=== PATIENT | female | born 1945 | race Caucasian/White ===

== ENCOUNTER 2017-07-22 15:44 | Inpatient (IN) | payer BC, MEDICARE ==
[2017-07-22 19:06] LABS: Troponin I 0.195 ng/mL (< 0.028)
[2017-07-22] MEDS ORDERED: traMADol HCl 50 MG TAB PO PRN (20:40)
[2017-07-22] MEDS ORDERED: cloNIDine 0.1 MG TAB PO PRN (20:40)
[2017-07-22] MEDS ORDERED: Acetaminophen 325 MG TAB PO PRN (20:40)
[2017-07-22] MEDS ORDERED: Ondansetron ODT 8 MG TAB SL PRN (20:42)
[2017-07-22] MEDS ORDERED: Promethazine HCl 25 MG/ML VIAL IM/IV PRN (20:42)
[2017-07-22] MEDS ORDERED: Benzonatate 100 MG CAP PO PRN (20:43)
[2017-07-22] MEDS ORDERED: Nitroglycerin 0.4 MG TAB (25 Tab Bottle) SL PRN (20:45)
[2017-07-22] MEDS ORDERED: Morphine 4 MG/ML VIAL SLOW IVP PRN (20:45)
[2017-07-22] MEDS ORDERED: Dextrose 5% in Water 1,000 ML IV PRN (20:49)
[2017-07-22] MEDS ORDERED: Dextrose 50% Abboject 50 ML SYRINGE SLOW IVP PRN (20:49)
[2017-07-22 22:13] LABS: Troponin I 0.165 ng/mL (< 0.028)
[2017-07-22] MEDS: cefTRIAXone\\ROCEPHIN 2 GM in Sodium Chloride 0.9% 100 ML IVPB SCH (22:13)
[2017-07-22] MEDS: Atorvastatin Calcium 40 MG TAB PO SCH (22:14)
[2017-07-22] MEDS: Insulin Detemir 100 UNITS/ML 40 UNITS in Pre-Filled Syringe SC SCH (22:14)
[2017-07-22] MEDS: Gabapentin 300 MG CAP PO SCH (22:14)
[2017-07-22] MEDS: guaiFENesin ER 600 MG TAB PO SCH (22:14)
[2017-07-22 22:56] VITALS: BMI 25.4
--- NOTE | 2017-07-23 00:34 | HP ---
DATE OF ADMISSION: 07/22/2017 CHIEF COMPLAINT: Posttussive emesis. HISTORY OF PRESENT ILLNESS: The patient states that approximately 3 months ago, she had a bout of br onchitis with interval resolution. She has a longstanding tobacco history of [id number]. No prior diagnosis of chronic obstructive pulmonary disease. She has a longstanding heart history with prior CABG. No chest pain or shortness breath; however, she has had sputum production over the last 1-2 weeks here with no fevers with worsening cough to the point of posttussive emesis over the last c ouple of days, worsening fatigue, body aches presented to the emergency department for evaluation and is having loose airy stools with difficulty keeping down food with appetite, decreased swell. Wilson centeno is found to have elevated troponin in the setting of chronic kidney disease in the [facility] and transferred to [facility] for further evaluation and cardiac workup. Patient is somewhat improved following a liter of bolus in transit and antiemetic medication. REVIEW OF SYSTEMS: No fevers, no chills. Positive body aches, positive decreased appetite, positive cough, positive sputum production, positive postnasal drip, positive congestion, positive nausea and vomiting, positive diarrhea. No dysuria, no chest pain, no shortness of breath. No lower extremity edema. No confusion. No syncopal episode. PAST MEDICAL AND SURGICAL HISTORY: Includes coronary artery disease, CABG, stent to left lower extre mity, CVA versus TIA, type 2 diabetes, hyperlipidemia, hypertension. Patient has had tubal ligation, CABG, stents as above in leg, lumbar spine surgery x2, left ovarian cyst. SOCIAL HISTORY: The patient is no longer smoking, no alcohol use. Lives alone. Daughter has social support in that area. HOME MEDICATIONS: Include Lasix 40 mg, aspirin 325, atorvastatin 40 mg, gabapentin 300 mg t.i.d., Le vemir 40 units at bedtime, tramadol 50 mg 1 tab p.o. daily p.r.n. for pain, metoprolol succinate 25 m g, Klor-Con 20 mEq 1 tab p.o. daily, Plavix 75 mg, clonidine 0.1 mg p.r.n. for blood pressure, amlodi pine 5 mg. PHYSICAL EXAMINATION: VITAL SIGNS: Blood pressure on arrival to emergency department of 130/66, pulse of 83, respiratory r ate of 19, temperature of 98.4, oxygen saturation 97% on room air. GENERAL: The patient is alert, oriented, in no acute distress. HEENT: Normocephalic, atraumatic. Extraocular movements are intact. Sclerae are clear. Oral mucos a is moist. HEART: Regular rate and rhythm. No murmurs auscultated. LUNGS: With some mucus plugging, cleared with posttussive effort to left lower base, otherwise clear . No rhonchi or rales. ABDOMEN: Soft, nontender. Positive bowel sounds throughout. EXTREMITIES: Lower extremities without cyanosis or edema. NEUROLOGIC: The patient is alert and oriented x3. No focal deficits. Speech is normal. LABORATORY AND DIAGNOSTIC DATA: White blood cell count of 3.3, platelet count of 116, hemoglobin of 13.9, neutrophils of 77.3. Sodium of 140, potassium of 4.1, CO2 of 25, creatinine of 2.08, glucose o f 145, AST of 20, ALT of 11. Troponin I 0.225, troponin II 0.195, albumin of 3.4, lipase of 61. Desi st x-ray without acute cardiopulmonary events. EKG with ST segment depression, otherwise normal sinu s rhythm. ASSESSMENT AND PLAN: Recurrent bronchitis, suspicious for early onset chronic obstructive pulmonary disease. Recommend spirometry, PFTs as an outpatient basis for more formal diagnosis in the interim, we will treat the patient like a chronic obstructive pulmonary disease exacerbation, likely causing some heart strain and elevated troponins in the setting of chronic kidney disease, stage 4. Start taya quevedo on Solu-Medrol transitioning to oral prednisone. Start patient on Rocephin and breathing treat ments q.8 hours, DuoNeb, incentive spirometry, Dulera in the a.m. twice daily. We will follow the taya quevedo's sputum production as patient's oxygen saturations are stable and no gross wheezing on exam at this point in time, clear x-ray on chest. Follow up trended troponin. Consulting Cardiology, given the patient's significant cardiac history to follow up to further cardiac management. Patient recei rayo 1 therapeutic dose of Lovenox. We will continue patient's home medications otherwise and maintai n on prophylactic Lovenox, continue further if any chest pain or shortness of breath occurs. We will escalate to acute coronary syndrome. Differential diagnosis of NSTEMI, given ST depression currentl y. Diabetes type 2. Continue patient's home insulin on sliding scale, Accu-Cheks and sliding scale insulin. We will follow the patient's I's and O's for any further saline bolus, the patient has rece ived 1 liter. No signs of volume overload at this point. Holding patient's Lasix and will follow cl inically.
[2017-07-23 05:39] LABS: Anion Gap 13 mmol/L (10-20); BUN (Urea Nitrogen) 36 mg/dL (9.8-20.1); Calc. Creatinine Clearance 32 mL/min (70-130); Calcium 9.2 mg/dL (7.8-10.44); Carbon Dioxide 27 mmol/L (23-31); Chloride 104 mmol/L (98-107); Estimated GFR-MDRD 27; Glucose 100 mg/dL (80-115); Potassium 3.6 mmol/L (3.5-5.1); Sodium 140 mmol/L (136-145)
[2017-07-23 06:07] LABS: Band 29 % (5-11); Eosinophils 2 % (0-10); Hemoglobin 12.2 g/dL (12.0-16.0); Lymphocytes 31 % (21-51); MDiff Complete? YES; Mean Corpuscular HGB CONC 32.3 g/dL (32.0-36.0); Mean Corpuscular Hemoglobin 28.9 pg (27.0-31.0); Mean Corpuscular Volume 89.5 fl (81.0-99.0); Mean Platelet Volume 10.7 fL (7.4-10.4); Monocytes 6 % (0-10); Neutrophil 31 % (42-75); PLT Morphology Comment Appears Decreased; Platelet Count 91 thou/uL (130-400); Red Blood Cell (RBC) Count 4.23 mill/uL (4.20-5.40); White Blood Cell (WBC) Count 2.5 thou/uL (4.8-10.8)
[2017-07-23] MEDS: Gabapentin 300 MG CAP PO SCH ×3 (08:56→22:40)
[2017-07-23] MEDS: Lisinopril 20 MG TAB PO SCH (08:56)
[2017-07-23] MEDS: Clopidogrel Bisulfate 75 MG TAB PO SCH (08:56)
[2017-07-23] MEDS: Aspirin 325 MG TAB PO SCH (08:56)
[2017-07-23] MEDS: guaiFENesin ER 600 MG TAB PO SCH ×2 (08:57→22:40)
[2017-07-23] MEDS: Enoxaparin Sodium 30 MG/0.3 ML SYRINGE SC SCH (08:57)
[2017-07-23] MEDS: Amlodipine 5 MG TAB PO SCH (08:57)
[2017-07-23] MEDS: predniSONE 20 MG TAB PO SCH (08:57)
[2017-07-23] MEDS: Mometasone/Formoterol 120 PUFF INHALER INH SCH ×2 (10:33→20:13)
--- NOTE | 2017-07-23 11:36 | PRG ---
DATE OF SERVICE: 07/23/2017 HISTORY OF PRESENT ILLNESS: The patient states she is still coughing, had a difficult night sleeping despite breathing treatments and steroids induction for her lung coverage. No signs of volume overload with no lower extremity edema reported. Withholding of Lasix and given IV bolus. Cardiology consultation pending regarding elevated troponins in the setting of chronic kidney disease. The patient has no additional new complaints. She has improved nausea today : VITAL SIGNS: Temperature 98.6, pulse of 81, respiratory rate of 18, oxygen saturation 96% on room air, blood pressure 146/84. LABORATORY DATA: Blood glucose is 87 to 97, creatinine improved to 1.8, potassium 3.6. BNP of 1902, troponin 2.195. Troponin 3.165. PHYSICAL EXAMINATION: GENERAL: The patient is alert and oriented, no acute distress. HEENT: Normocephalic, atraumatic. Extraocular movements intact. Sclerae are clear. NECK: Supple. Oral mucosa is moist. HEART: Regular rate and rhythm. No murmurs auscultated. The left lung field is clear, the right lung wilson with expiratory wheezes full phase. ABDOMEN: Soft, nontender, positive bowel sounds throughout. EXTREMITIES: Lower extremities without cyanosis or edema. NEUROLOGIC: The patient is alert and oriented x3, no focal deficits. Speech is normal. ASSESSMENT AND PLAN: 1. Following initiation of steroids, antibiotics, breathing treatments, the patient has better air movement compared to admission. She is now having full phased expiratory wheezes consistent with chronic obstructive pulmonary disease exacerbation, still Pulmonary recommended spirometry or PFTs on an outpatient basis for more proper diagnosis; however, we will continue to treat as chronic obstructive pulmonary disease exacerbation at this point. 2. Elevated troponin. Cardiology to evaluate. Troponins have trended down with IV fluids and holding Lasix, restarting Lasix for tomorrow morning. No signs of vascular congestion at this point. Repeating chest x-ray, however, for worsening abnormal lung sounds as above. We will continue IV antibiotic. 3. Diabetes type 2. Continue patient's insulin, it was not given history secondary to hypoglycemia. The patient remains asymptomatic. We will continue sliding scale insulin and Accu-Cheks with carb control diet at this point. 4. Acute on Chronic renal insuficiency. Improved with IV bolus and IV medications. Will default to any further recommendations per Cardiology. The patient remains stable off oxygen. As long as she does not deteriorate no cardiac intervention. Will likely be discharged tomorrow. ALEXANDRA
[2017-07-23] MEDS: HumaLOG 300 UNITS/3 ML VIAL SC PRN (17:29)
[2017-07-23] MEDS ORDERED: methylPREDNISolone Sod Succ/PF 125 MG/2 ML VIAL IVP ONE (20:39)
[2017-07-23] MEDS: Atorvastatin Calcium 40 MG TAB PO SCH (22:40)
[2017-07-23] MEDS: cefTRIAXone\\ROCEPHIN 2 GM in Sodium Chloride 0.9% 100 ML IVPB SCH (22:41)
[2017-07-23] MEDS: Insulin Detemir 100 UNITS/ML 40 UNITS in Pre-Filled Syringe SC SCH (22:41)
--- NOTE | 2017-07-23 23:05 | CON ---
DATE OF CONSULTATION: 07/23/2017 DATE OF ADMISSION: 07/22/2017 INDICATION FOR CONSULTATION: This is a 72-year-old female with a long history of coronary artery dis ease, bypass surgery, angioplasty, and stent placement, who was admitted with nausea and coughing for 3 days and slight elevation of the cardiac enzymes, which were still indeterminate. We were asked t o see her due to her history of coronary artery disease in the past, also abnormal EKG findings. HISTORY OF PRESENT ILLNESS: This is a very pleasant 72-year-old female I follow up for many years. She has a history of coronary artery disease. She has undergone angioplasty and stent placement and also bypass surgery. She has suffered a myocardial infarction in the past. In September 2016, she prese nted with a non-ST segment elevation myocardial infarction. She underwent angioplasty and stent plac ement to the left circumflex at that time with a drug-eluting stent. Also, the bypass, she was found to have a completely occluded right coronary artery and the graft also was occluded, but she did hav e a patent saphenous vein graft to the left anterior descending artery, and she has done well since t hat time. She does have a history of chronic renal insufficiency. Her creatinine has been elevated at times. At this time, it still remains elevated at 182, but this is baseline for her when she arri rayo in the emergency room after 3 days of coughing, which she started having emesis associated with t his, but no hematemesis. She presented to the emergency room and EKGs showed no acute changes, but s he does have evidence of left ventricular hypertrophy and ST-segment changes associated with this. C ardiac enzymes unfortunately were slightly elevated with a troponin I, which was 0.225, which is now continuing to decrease down to 0.165 and most likely indicates demand ischemia. She denied any chest pain and had no recent shortness of breath or problems until the last few days when she developed br onchitis. PAST MEDICAL HISTORY: Significant for coronary artery disease, bypass surgery, angioplasty with sten t placement, history of peripheral vascular disease. She has undergone a right iliac bypass. She velásquez s had a left stent to the left iliac. History of diabetes, hypertension, hypercholesterolemia, chron ic back pain due to arthritis. She has had a history of tremors. She has had a history of cerebrova scular accident in the past. She has a right lung mass, which is followed by the chopped strand operator. She has chronic kidney disease, which has been relatively stable. She has had a right shoulder replacem ent. ALLERGIES: She is allergic to CLINDAMYCIN and METFORMIN. PRESENT MEDICATIONS: Medications prior to admission included multivitamins, amlodipine, Tylenol, fis h oil, garlic, furosemide, clonidine, potassium, metoprolol, aspirin, atorvastatin, Plavix, Neurontin , Ultram, and insulin subcu. At this time, her medications are pretty much the same except her insul in has been discontinued and she is on a sliding scale. She has also been placed on ipratropium and albuterol nebulizer treatments and also was given methylprednisolone in the emergency room. She is n ow on p.o. prednisone and she was placed also on antibiotics, ceftriaxone. REVIEW OF SYSTEMS: A 12-point review of systems was unremarkable except what was noted in the histor y of present illness. FAMILY HISTORY: Noncontributory. PHYSICAL EXAMINATION: GENERAL: Reveals a well-developed, well-nourished female, who is in no acute distress. She does con tinue to have some coughing, but not as severe as when she was admitted she says. VITAL SIGNS: Her blood pressure today is 125/59, heart rate is 65 and regular. She is afebrile, tem perature 97.7, respiratory rate is 14, O2 saturations 96%. HEENT EXAM: Shows the head to be normocephalic, atraumatic. She has a left carotid bruit. She has bilateral incisions over the carotid areas. CHEST: Has diffuse wheezing and rhonchi bilaterally; this may be due to upper airway noise, but does appear to be actually more from the lungs than just from bronchial tubes. CARDIOVASCULAR: She has a regular rate and rhythm. She has a systolic murmur at the apex. ABDOMINAL EXAM: Soft and nontender. Positive bowel sounds are present. EXTREMITIES: Show no clubbing, cyanosis, or edema. Pedal pulses are not palpable, nor could I palpa te the left popliteal pulse. The right pulse seems to be reasonable. She has a left femoral bruit n oted. NEUROLOGIC: The patient has no gross focal motor deficits. SKIN: Warm and dry at this time. EXTREMITIES: Somewhat cool, but it is cold in the room. LABORATORY DATA: As noted above, which shows an elevated BNP of 1902, creatinine is 1.82, potassium 3.6. Sodium 140. Hemoglobin is 12.2, WBC of 2.5 with a platelet count of 91,000. IMPRESSION: 1. Acute bronchitis, which she is on antibiotics. 2. Coronary artery disease with slight abnormality of the cardiac enzymes. This lady always has sli ghtly elevated cardiac enzymes, but does not indicate that she has had a myocardial infarction at thi s time. She denied any chest pain. EKG is not having significant changes. She does have some nonsp ecific changes. We will continue to monitor these. We will also continue to trend the cardiac enzym es, but they have been trending downwards and most likely this will resolve. 3. Elevation of the BNP. This may be due to her acute respiratory problems with the demand ischemia possibly, but we will continue to monitor this also. She does not appear to be volume overloaded at this time. 4. Peripheral vascular disease. This appears to be stable. 5. History of diabetes. This will be dealt with by the primary care service. 6. Hypertension. This is also stable at this time. 7. History of cerebrovascular accident in the past. She has had no new episodes or events noted. 8. Chronic kidney disease, which is actually pretty much at baseline for her, maybe slightly elevate d, but no acute changes have been noted as far as this is concerned. I would be more than happy to continue to follow the patient, but at this time, no further cardiac in tervention is indicated or further workup at this time. We will hopefully treat her acute bronchitis and monitor the enzymes at least one if she does have pain. Right now, they continue to trend downw ards. We will continue to follow the patient with you.
[2017-07-24 05:31] LABS: #Lymphocytes 0.5 thou/uL (1.20-3.40); #Monocytes 0.4 thou/uL (0.11-0.59); #Neutrophils 4.3 thou/uL (1.40-6.50); %Eosinophils 0.1 % (0.0-10.0); %Lymphocytes 9.5 % (21.0-51.0); %Monocytes 7.4 % (0.0-10.0); Hemoglobin 12.8 g/dL (12.0-16.0); Mean Corpuscular HGB CONC 32.3 g/dL (32.0-36.0); Mean Corpuscular Hemoglobin 28.6 pg (27.0-31.0); Mean Corpuscular Volume 88.6 fl (81.0-99.0); Mean Platelet Volume 11.4 fL (7.4-10.4); Platelet Count 96 thou/uL (130-400); RBC Distribution Width 16.9 % (11.5-14.5); Red Blood Cell (RBC) Count 4.49 mill/uL (4.20-5.40); White Blood Cell (WBC) Count 5.1 thou/uL (4.8-10.8)
[2017-07-24 05:37] LABS: Anion Gap 13 mmol/L (10-20); BUN (Urea Nitrogen) 38 mg/dL (9.8-20.1); Calc. Creatinine Clearance 32 mL/min (70-130); Calcium 9.7 mg/dL (7.8-10.44); Carbon Dioxide 27 mmol/L (23-31); Chloride 103 mmol/L (98-107); Estimated GFR-MDRD 28; Glucose 292 mg/dL (80-115); Potassium 3.5 mmol/L (3.5-5.1); Sodium 139 mmol/L (136-145)
[2017-07-24] MEDS ORDERED: Furosemide 40 MG TAB PO SCH (07:30)
[2017-07-24] MEDS: Mometasone/Formoterol 120 PUFF INHALER INH SCH (07:53)
[2017-07-24] MEDS: Amlodipine 5 MG TAB PO SCH (08:03)
[2017-07-24] MEDS: guaiFENesin ER 600 MG TAB PO SCH (08:03)
[2017-07-24] MEDS: predniSONE 20 MG TAB PO SCH (08:03)
[2017-07-24] MEDS: Gabapentin 300 MG CAP PO SCH (08:03)
[2017-07-24] MEDS: Clopidogrel Bisulfate 75 MG TAB PO SCH (08:03)
[2017-07-24] MEDS: Aspirin 325 MG TAB PO SCH (08:03)
[2017-07-24] MEDS: Enoxaparin Sodium 30 MG/0.3 ML SYRINGE SC SCH (08:04)
[2017-07-24] MEDS: Lisinopril 20 MG TAB PO SCH (08:04)
--- NOTE | 2017-07-24 08:52 | RAD ---
PA AND LATERAL CHEST: Comparison: 07-22-17 History: COPD exacerbation. FINDINGS: Heart size is enlarged with post op sternotomy changes. The lungs appear clear of any infiltrative pr ocess. No signs of overt edema or evidence of focal infiltrates. Post-operative changes of the right shoulder are noted. IMPRESSION: Cardiomegaly with some mild chronic interstitial change. Stable chest. POS: H
--- NOTE | 2017-07-24 10:48 | PDOC.CTH ---
<Ame Narvaez - Last Filed: 07/24/17 10:45> Cardiology Progress Note - Subjective The pt seen and examined. No overnight events. No cardiac complaints. She had experienced of N&V after severe cough prior to this admission. She has walked without any difficulties. She also tolerates well with PO intake - Objective Vital Signs Temp Pulse Resp BP Pulse Ox 07/24/17 08:18 97.8 F 76 18 164/77 H 98 07/24/17 08:10 97.8 F 76 18 98 07/24/17 08:03 75 07/24/17 07:55 95 07/24/17 07:53 75 16 96 07/24/17 04:31 94 L 07/24/17 03:55 97.7 F 92 12 163/77 H 94 L 07/24/17 00:50 95 07/24/17 00:00 97.8 F 88 17 174/71 H 95 07/23/17 23:39 86 14 93 L Weight 155 lb 07/23/17 07/24/17 07/25/17 06:59 06:59 06:59 Intake Total 820 Output Total 800 Balance 20 - Physical Examination General/Neuro: alert & oriented x3 Neck: no JVD present Lungs: other: (coases and diminished at bases) Heart: RRR Abdomen: soft Extremities: other: (No edemas) - Telemetry Telemetry Rhythm: SR 86 - Labs Result Diagrams: 07/24/17 04:51 07/24/17 04:51 Troponin/CKMB Troponin I 0.165 ng/mL (< 0.028) H 07/22/17 21:38 - Assessment/Plan 1. Acute Bronchitis - on Antibiotic; managed by PCP 2. CAD w/ hx of CABG and stent - stable; on ASA, SUKHI and BBlocker 3. Elevated BNP - stable with RA; on Lasix; cont. monitor 4. HTN - stable with current medication 5. DM type 2 - managed by PCP 6. CKD - Cr level is slightly better today; cont. monitor 7. Hyperlipidemia - on Statin 8. PVD - stable; cont. monitor MAR reviewed Review of Systems - Review of Systems Constitutional: reports: no symptoms reported EENTM: reports: no symptoms reported Respiratory: reports: see HPI Cardiac (ROS): reports: no symptoms reported ABD/GI: reports: no symptoms reported : reports: no symptoms reported <Erin Toledo - Last Filed: 07/24/17 16:44> Cardiology Progress Note - Objective Vital Signs Temp Pulse Resp BP Pulse Ox 07/24/17 12:30 97.6 F 79 16 162/73 H 97 07/24/17 08:18 97.8 F 76 18 164/77 H 98 07/24/17 08:10 97.8 F 76 18 98 07/24/17 08:03 75 07/24/17 07:55 95 07/24/17 07:53 75 16 96 Weight 155 lb 07/23/17 07/24/17 07/25/17 06:59 06:59 06:59 Intake Total 820 Output Total 800 Balance 20 - Labs Result Diagrams: 07/24/17 04:51 07/24/17 04:51 Troponin/CKMB Troponin I 0.165 ng/mL (< 0.028) H 07/22/17 21:38 - Assessment/Plan Pt. seen and eval. by me. I agree with the A/P by the NANNY/HOUSEHOLD MANAGER. Pt. should follow up in my office in 1-2 months.
[2017-07-24] MEDS: HumaLOG 300 UNITS/3 ML VIAL SC PRN (12:33)
[2017-07-24 12:56] VITALS: BP 162/73; TEMP 97.6
--- NOTE | 2017-07-25 08:30 | DIS ---
DATE OF ADMISSION: 07/22/2017 DATE OF DISCHARGE: 07/24/2017 PRESENTING CHIEF COMPLAINT: Cough, shortness of breath. PRESENTING HISTORY OF PRESENT ILLNESS: The patient reports this is her second bout of bronchitis-lik e symptoms in the last 6 months, 20+ pack year history of tobacco use, never been diagnosed with COPD prior and feel shortness of breath with association of the cough, had post-tussive emesis and a coup le bouts of diarrhea, felt dehydrated, presented to the emergency department and was rehydrated with IV bolus and was found to have elevated troponin. HOSPITAL COURSE: The patient's troponins trended down. Cardiology was consulted and did not feel li ke this constituted acute [place]. Rather than the setting of acute on chronic renal insufficiency, some heart strain was provided given bronchitis and dehydration. No cardiac interventions were recommende d. The patient did well with breathing treatments, steroids, and antibiotics. As this patient has c hronic obstructive pulmonary disease exacerbation, exam was consistent with COPD exacerbation with ex piratory wheezes. Repeat chest x-ray did not show any interval occurring pneumonia. The patient was discharged home with medications recommending patient follow up with Pulmonology for spirometry and/ or PFTs for more formal diagnosis once the patient's bronchitis is past in an outpatient basis. Flu was checked and was negative. CONSULTATIONS: Cardiology, Dr. Toledo. IMAGING: Chest x-ray on admission and 07/24/2017, cardiomegaly with mild chronic interstitial change s, stable chest, no pneumonia. DIAGNOSES: Include chronic obstructive pulmonary disease exacerbation, acute on chronic renal insuff iciency consistent with chronic kidney disease stage 3, diabetes type 2, elevated troponin and thromb ocytopenia. The patient's thrombocytopenia was monitored, decreased with therapeutic Lovenox given o n transport from [facility] and the patient was maintained on prophylactic Lovenox and patient's platelets stabilized prior to discharge. No bleeding was noted. DISCHARGE MEDICATIONS: Include Albuterol HFA 90 mcg 2 puffs p.r.n. cough, wheeze, Norvasc 5 mg 1 tab p.o. daily, Augmentin 875/125 1 tab p.o. b.i.d., aspirin 325 mg 1 tab p.o. daily, Lipitor 40 mg 1 ta b p.o. at bedtime, Tessalon Perles 100 mg 1 tab p.o. t.i.d. p.r.n. for cough, clonidine 0.1 mg p.r.n. for systolic blood pressure greater than 160, Plavix 75 mg 1 tab p.o. daily, Lasix 40 mg 1 tab p.o. daily, Neurontin 300 mg 1 tab p.o. t.i.d., Bevespi one inhalation b.i.d., Levemir 40 units subcutaneo us at bedtime, Toprol 100 mg extended release at bedtime, Klor-Con 20 mEq 1 tab p.o. at bedtime, Pred nisone 40 mg daily x5 additional days, tramadol 50 mg q.i.d. p.r.n. for pain. DISCHARGE CONDITION: Stable with good long rehabilitation potential. DISCHARGE DIET: Cardiac and consistent carb. FOLLOWUP: Follow up with Dr. Abraham Rudd within a week for a lung check on discharge medica tions. Follow up with Cardiology in the next 1-2 months, sooner if any chest pain or shortness of br eath continues despite lung treatment.
--- NOTE | 2017-07-27 22:57 | PQF ---
OMAR MORA THOMAS [id number] CLINICAL DOCUMENTATION CLARIFICATION FORM: POST DISCHARGE Addendum to original discharge summary date: ____ Late entry note date: __ DATE: 07/27/2017 ATTN: Austin Ku MD Please exercise your independent, professional judgment in responding to the clarification form. Clinical indicators are provided on the bottom of this form for your review Discharge Summary Hospital Course: ........Rather than the setting of acute on chronic renal insufficency, some heart strain was porvided given the bronchitis and dehydration Please check appropriate box(s): [ ] Acute Renal Failure (ARF) / Acute Kidney Injury (KEVIN) (Please specify associated condition, if applicable) ( ) Acute Renal Insufficiency [ ] Acute Renal Failure [ ] Unable to clinically determine [ x ] Acute on Chronic Renal Failure please specify Stage of CKD __III ( see below) [ ] CKD without ARF/KEVIN please specify Stage of CKD [ ] ESRD [ ] Other diagnosis [ ] Unable to determine In addition, please specify: Present on Admission (POA): [ ] Yes [ ] No [ ] Unable to determine National Kidney Foundation Guidelines for CKD Staging Stage I Kidney damage with normal or increased GFRGFR > 90 Stage IIKidney damage with mildly decreased GFRGFR 60-89 Stage III Kidney damage with moderately decreased GFRGFR 30-59 Stage IVKidney damage with severely decreased GFRGFR 16-29 Stage VKidney failure GFR<15 ESRDEnd Stage Renal Disease On dialysis For continuity of documentation, please document condition throughout progress notes and discharge summary. Thank You. CLINICAL INDICATORS - SIGNS / SYMPTOMS / LABS Decreased urine output (< 30 ml hr) / prolonged azotemia / documentation of oliguria / anuria) Abnormal labs (BUN, creatinine, K+, creatinine clearance, low GFR) Hypotension with prolonged decreased renal perfusion Urinalysis (epithelial cells, muddy brown granular casts, and/or coarse granular casts urine Na > 40) Metabolic acidosis Nausea / Vomiting / Diarrhea Edema Lethargy or fatigue RISK FACTORS Dehydration Use of SUKHI inhibitors, NSAIDS, diuretics Nephrotoxins (drugs and contrast) Primary renal disease, vasculitis or interstitial nephritis Obstructive Nephropathy Shock TREATMENTS: IV ?uid challenge result Pharmacy / nephrology consult Dialysis Correction of electrolytes / acidosis (This form is maintained as a part of the permanent medical record) 2014 [employer]. All Rights Reserved [email or web address] [email or web address] [phone] [email or web address]
--- NOTE | 2017-08-02 19:24 | EKG ---
Test Reason : Blood Pressure : / mmHG Vent. Rate : 077 BPM Atrial Rate : 077 BPM P-R Int : 186 ms QRS Dur : 120 ms QT Int : 438 ms P-R-T Axes : 047 -37 148 degrees QTc Int : 495 ms Normal sinus rhythm Right atrial enlargement Left axis deviation Left ventricular hypertrophy with QRS widening and repolarization abnormality Abnormal ECG When compared with ECG of 22-JUL-2017 16:04, (Unconfirmed) T wave inversion less evident in Anterior leads Confirmed by SHANE ALLEN (2) on 08/02/2017 7:24:21 PM Referred By: PRINCE Confirmed By:SHANE ALLEN
== END 2017-07-24 15:18 | disposition home or self-care (01) | DRG 191 ==
LOC: ERS 15:44 → ERHOLD 18:14 → 2NO 21:24
PROVIDERS: ADMIT Family Medicine; ATTEND Family Medicine
DX: J44.1 Chronic obstructive pulmonary disease with (acute) exacerbation (principal); N17.9 Acute kidney failure, unspecified; D69.6 Thrombocytopenia, unspecified; E11.9 Type 2 diabetes mellitus without complications; E86.0 Dehydration; N18.3 Chronic kidney disease, stage 3 (moderate); F17.210 Nicotine dependence, cigarettes, uncomplicated; E78.5 Hyperlipidemia, unspecified; I25.10 Atherosclerotic heart disease of native coronary artery without angina pectoris; I73.9 Peripheral vascular disease, unspecified; R74.8 Abnormal levels of other serum enzymes; Z79.51 Long term (current) use of inhaled steroids; Z95.5 Presence of coronary angioplasty implant and graft; Z86.73 Personal history of transient ischemic attack (TIA), and cerebral infarction without residual deficits; Z88.1 Allergy status to other antibiotic agents; Z88.8 Allergy status to other drugs, medicaments and biological substances
CPT/HCPCS: 36415; 36416; 71046; 80048; 83880; 85025; 87804; 93005; 93010; 94640; J0696; J1650; J1815; J7050; J7506; J7620

== ENCOUNTER 2017-10-01 15:19 | Emergency (ER) | payer BC, MEDICARE ==
[2017-10-01] MEDS ORDERED: Ondansetron HCl/PF 4 MG/2 ML Vial ONE (17:34)
[2017-10-01] MEDS ORDERED: Ondansetron ODT 4 MG TAB ONE (17:35)
[2017-10-01] MEDS ORDERED: HYDROmorphone 0.5 MG/0.5 ML SYRINGE ONE (17:45)
== END 2017-10-01 18:09 | disposition home or self-care (01) ==
LOC: ERS 15:19
DX: G89.29 Other chronic pain (principal); L40.50 Arthropathic psoriasis, unspecified; E11.9 Type 2 diabetes mellitus without complications; E78.5 Hyperlipidemia, unspecified; I25.2 Old myocardial infarction; I11.0 Hypertensive heart disease with heart failure; I50.9 Heart failure, unspecified; M06.9 Rheumatoid arthritis, unspecified
CPT/HCPCS: 96372; J1170; J2405; Q0162

== ENCOUNTER 2017-11-06 14:12 | Outpatient (CLI) | payer BC, MEDICARE ==
--- NOTE | 2017-11-06 16:21 | CT ---
NONCONTRAST CT LUMBAR SPINE: Date: 11-06-17 History: Lumbar radiculopathy. Patient complains of low back pain. History of prior lumbar surgery. Comparison: 05-03-16 FINDINGS: Prominent vascular calcifications seen in the abdominal aorta and iliac arteries as well as involving the splenic artery and renal arteries. Colonic diverticula partially visualized. Paravertebral soft tissues are within normal limits aside from mild atrophy of the paraspinus muscula ture similar to prior exam. Noted on the prior exam, there are post-surgical change related to posterior effusion of the L3-4, L4 -5, and L5-S1 levels with bipedicular screws at these levels and posterior rods at the L2-3 and L5-S1 levels. Rods spanning the L3-4 and L4-5 levels are not present. There is stable grade I anterolisthesis of L2 on L3. No additional level of subluxation is seen. The vertebral body heights are within normal limits. L1-2: There is a mild broad based disc osteophyte complex. This results in mild narrowing of the cent ral spinal canal. There is mild right and moderate left sided neural foraminal narrowing. L2-3: Loss of the intervertebral disc height. Laminectomy defect is seen posteriorly. Disc osteophyte complex is again present. There is mild narrowing of the central spinal canal. There is also mild to moderate right neural foraminal narrowing with severe left sided foraminal narrowing related to far lateral left disc bulge and osteophyte formation. L3-4: Mild posterior osteophyte formation. Laminectomy defect is seen at this level. There is mild ef facement of the ventral aspect of the thecal sac. The neural foramina are patent at this level. L4-5: There is limited evaluation at this level due to spray artifact from intradiscal prosthesis and pedicular screws which limits adequate evaluation of the central canal. There is a right paracentral posterior osteophyte formation also noted on the prior exam. There is mild bilateral neural foramina l narrowing, greater on the left. Findings are overall similar to the prior exam. There is at least m ild narrowing of the central spinal canal. L5-S1: Laminectomy defect is seen posteriorly. Central spinal canal and neural foramina are partially obscured due to the spray artifact from the pedicular screws limiting adequate evaluation. The right neural foramen does appear patent. Left neural foramen is difficult to adequately access. There is a t least mild and possibly moderate left sided neural foraminal narrowing. IMPRESSION: Post-surgical changes and multilevel degenerative changes involving the lumbar spine. Degenerative ch anges have not significantly progressed when compared to prior study. POS: [facility]
== END 2017-11-06 14:13 | disposition home or self-care (01) ==
LOC: TBSIIMAG 14:12
PROVIDERS: ATTEND Neurological Surgery
DX: M47.26 Other spondylosis with radiculopathy, lumbar region (principal); Z98.890 Other specified postprocedural states
CPT/HCPCS: 72131

== ENCOUNTER 2018-03-17 14:46 | Inpatient (IN) | payer BC, MEDICARE, OTHER ==
[~2018-03-17 14:46] MED LIST: ISOVUE-370 76%-LOCM 1 ML ONE
[2018-03-17 15:18] LABS: #Eosinphils 0.1 thou/uL (0.0-0.7); #Monocytes 0.4 thou/uL (0.11-0.59); #Neutrophils 5.2 thou/uL (1.40-6.50); %Basophils 0.4 % (0.0-1.0); %Lymphocytes 14.5 % (21.0-51.0); %Monocytes 5.7 % (0.0-10.0); %Neutrophils 77.5 % (42.0-75.0); Hemoglobin 13.5 g/dL (12.0-16.0); Mean Corpuscular HGB CONC 34.3 g/dL (32.0-36.0); Mean Corpuscular Hemoglobin 31.3 pg (27.0-31.0); Mean Corpuscular Volume 91.2 fL (78.0-98.0); Mean Platelet Volume 9.9 fL (7.4-10.4); Platelet Count 121 thou/uL (130-400); RBC Distribution Width 14.9 % (11.5-14.5); White Blood Cell (WBC) Count 6.7 thou/uL (4.8-10.8)
[2018-03-17 15:27] LABS: INR-International Normal Ratio 1.2; Prothrombin Time 14.9 SEC (12.0-14.7)
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
[2018-03-17 15:33] LABS: CKMB 2.8 ng/mL (0-6.6); Troponin I 0.061 ng/mL (< 0.028)
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
[2018-03-17 15:42] LABS: ALT (SGPT) 11 U/L (8-55); AST (SGOT) 19 U/L (5-34); Albumin 3.7 g/dL (3.4-4.8); Alkaline Phosphatase 107 U/L (40-150); Anion Gap 15 mmol/L (10-20); BUN (Urea Nitrogen) 31 mg/dL (9.8-20.1); Bilirubin, Total 0.6 mg/dL (0.2-1.2); CK (CPK) 67 U/L (29-168); Calc. Creatinine Clearance 0 mL/min (70-130); Carbon Dioxide 25 mmol/L (23-31); Chloride 103 mmol/L (98-107); Estimated GFR-MDRD 28; Globulin 2.7 g/dL (2.4-3.5); Glucose 236 mg/dL (83-110); Lipase 66 U/L (8-78); Potassium 4.3 mmol/L (3.5-5.1); Protein, Total 6.4 g/dL (6.0-8.3); Sodium 139 mmol/L (136-145)
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
[2018-03-17] MEDS ORDERED: traMADol HCl 50 MG TAB PO PRN ×2 (20:25)
[2018-03-17] MEDS ORDERED: hydrALAZINE 20 MG/ML VIAL SLOW IVP PRN (20:25)
[2018-03-17] MEDS ORDERED: Dextrose 50% Abboject 50 ML SYRINGE SLOW IVP PRN (20:25)
[2018-03-17] MEDS ORDERED: Insulin Regular 300 UNITS/3 ML VIAL SC PRN (20:25)
[2018-03-17] MEDS ORDERED: Dextrose 5% in Water 1,000 ML IV PRN (20:25)
[2018-03-17] MEDS ORDERED: Ondansetron HCl/PF 4 MG/2 ML Vial IVP PRN (20:25)
[2018-03-17] MEDS ORDERED: Acetaminophen 1,000 MG in Premix Bag 1 BAG IVPB SCH (20:30)
[2018-03-17 20:33] VITALS: BMI 25.4
[2018-03-17] MEDS: Famotidine 20 MG TAB PO SCH (21:06)
[2018-03-17] MEDS: Sodium Chloride 0.9% 1,000 ML IV SCH (21:07)
[2018-03-17] MEDS: Ondansetron ODT 4 MG TAB PO PRN (21:33)
[2018-03-18] MEDS: Acetaminophen 325 MG TAB PO SCH ×6 (01:36→20:34)
[2018-03-18 04:01] LABS: #Eosinphils 0.1 thou/uL (0.0-0.7); #Lymphocytes 1.3 thou/uL (1.20-3.40); #Monocytes 0.4 thou/uL (0.11-0.59); #Neutrophils 2.9 thou/uL (1.40-6.50); %Basophils 0.2 % (0.0-1.0); %Eosinophils 1.9 % (0.0-10.0); %Lymphocytes 27.6 % (21.0-51.0); %Monocytes 8.3 % (0.0-10.0); Hemoglobin 12.5 g/dL (12.0-16.0); Mean Corpuscular HGB CONC 34.2 g/dL (32.0-36.0); Mean Corpuscular Hemoglobin 31.6 pg (27.0-31.0); Mean Corpuscular Volume 92.4 fL (78.0-98.0); Mean Platelet Volume 10.3 fL (7.4-10.4); Platelet Count 98 thou/uL (130-400); Red Blood Cell (RBC) Count 3.95 mill/uL (4.20-5.40); White Blood Cell (WBC) Count 4.7 thou/uL (4.8-10.8)
[2018-03-18 04:13] LABS: Anion Gap 11 mmol/L (10-20); BUN (Urea Nitrogen) 25 mg/dL (9.8-20.1); Calc. Creatinine Clearance 39 mL/min (70-130); Calcium 9.2 mg/dL (7.8-10.44); Carbon Dioxide 26 mmol/L (23-31); Chloride 106 mmol/L (98-107); Estimated GFR-MDRD 36; Glucose 147 mg/dL (83-110); Potassium 4.2 mmol/L (3.5-5.1); Sodium 139 mmol/L (136-145)
[2018-03-18] MEDS: Sodium Chloride 0.9% 1,000 ML IV SCH (08:27)
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
[2018-03-18] MEDS: Famotidine 20 MG TAB PO SCH (20:34)
[2018-03-19] MEDS: Acetaminophen 325 MG TAB PO SCH ×3 (00:46→09:03)
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
[2018-03-19] MEDS ORDERED: Docusate 100 MG CAP PO SCH ×2 (05:15→09:00)
[2018-03-19] MEDS: Ondansetron ODT 4 MG TAB PO PRN (10:18)
[2018-03-19 11:17] VITALS: BP 108/72; TEMP 98.2
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
--- NOTE | 2018-03-20 12:49 | EKG ---
Test Reason : Blood Pressure : / mmHG Vent. Rate : 090 BPM Atrial Rate : 090 BPM P-R Int : 186 ms QRS Dur : 128 ms QT Int : 422 ms P-R-T Axes : 073 -37 133 degrees QTc Int : 516 ms Normal sinus rhythm Biatrial enlargement Left axis deviation Left ventricular hypertrophy Abnormal ECG Confirmed by LENCHO RAMIREZ D.O. ([id number]), newspaper managing editor LEONELA ROBERSON ([id number]) on 03/20/2018 12:49:22 PM Referred By: Confirmed By:LENCHO RAMIREZ D.O.
== END 2018-03-19 12:30 | disposition home or self-care (01) | DRG 87 ==
LOC: ERS 14:46 → CCU 20:18 → SURG A 03-18 09:50
PROVIDERS: ADMIT Surgery; ATTEND Surgery
DX: S06.5X0A Traumatic subdural hemorrhage without loss of consciousness, initial encounter (principal); I25.10 Atherosclerotic heart disease of native coronary artery without angina pectoris; S50.312A Abrasion of left elbow, initial encounter; R41.3 Other amnesia; E11.9 Type 2 diabetes mellitus without complications; S40.012A Contusion of left shoulder, initial encounter; R91.1 Solitary pulmonary nodule; M54.2 Cervicalgia; I11.0 Hypertensive heart disease with heart failure; I50.9 Heart failure, unspecified; E78.5 Hyperlipidemia, unspecified; I69.398 Other sequelae of cerebral infarction; H53.8 Other visual disturbances; R40.2413 Glasgow coma scale score 13-15, at hospital admission; Z95.1 Presence of aortocoronary bypass graft; Z95.820 Peripheral vascular angioplasty status with implants and grafts; Z87.891 Personal history of nicotine dependence; Z98.1 Arthrodesis status; Z79.82 Long term (current) use of aspirin; Z79.02 Long term (current) use of antithrombotics/antiplatelets; V49.40XA Driver injured in collision with unspecified motor vehicles in traffic accident, initial encounter; Y92.410 Unspecified street and highway as the place of occurrence of the external cause
CPT/HCPCS: 36415; 36416; 70450; 71260; 72125; 72170; 74177; 80048; 80053; 82553; 83690; 84484; 85025; 85610; 85730; 93005; 96374; G0390; G8978-GP-CK; G8979-GP-CK; G8980-GP-CK; G8987-GO-CI; G8988-GO-CI; G8989-GO-CI; J0131; J2270; Q0162

== ENCOUNTER 2018-04-08 13:20 | Outpatient (CLI) | payer BC, MEDICARE ==
--- NOTE | 2018-04-08 16:53 | CT ---
NONCONTRAST CT HEAD: Date: 04/08/18 HISTORY: Follow-up subdural hematoma. COMPARISON: 03/18/18. FINDINGS: There is a miniscule heterogeneous left subdural collection which is much smaller in size compared to the prior exam. This measures 2-3 mm in maximal transverse dimension on today's exam, with previous transverse dimension of approximately 4.0 mm. No additional intraparenchymal extra-axial hemorrhage i s seen. Chronic small vessel ischemic changes and cerebral volume loss are again noted. Stable area of enceph alomalacia in the right parieto-occipital region is present, likely related to prior areas of infarct ion. There is no evidence of an acute cortical infarction, mass effect, or midline shift. There has b een no other interval change compared to the prior exam. Small lucency within the right parietal bone is again seen, probably small hemangioma. Dense vascular calcifications are seen in distal vertebral arteries and in the carotid siphons. IMPRESSION: 1. Interval decrease in size of left subdural hematoma with only very minimal residual left subdural collection visualized. 2. Stable area of encephalomalacia and gliosis within the right parietal and parietooccipital lobes, likely related to remote areas of infarction. 3. Stable chronic small vessel ischemic changes and cerebral volume loss. POS: [facility]
== END 2018-04-08 13:21 | disposition home or self-care (01) ==
LOC: TBSIIMAG 13:20
PROVIDERS: ATTEND Surgery
DX: S06.5X0A Traumatic subdural hemorrhage without loss of consciousness, initial encounter (principal); G93.89 Other specified disorders of brain
CPT/HCPCS: 70450

== ENCOUNTER 2018-04-17 07:29 | Inpatient (IN) | payer BC, MEDICARE ==
[2018-04-17 07:58] LABS: #Eosinphils 0.1 thou/uL (0.0-0.7); #Lymphocytes 0.7 thou/uL (1.20-3.40); #Monocytes 0.3 thou/uL (0.11-0.59); #Neutrophils 1.9 thou/uL (1.40-6.50); %Basophils 0.9 % (0.0-1.0); %Eosinophils 2.6 % (0.0-10.0); %Lymphocytes 24.6 % (21.0-51.0); %Monocytes 8.3 % (0.0-10.0); %Neutrophils 63.6 % (42.0-75.0); Hemoglobin 11.7 g/dL (12.0-16.0); Mean Corpuscular HGB CONC 31.2 g/dL (32.0-36.0); Mean Corpuscular Hemoglobin 29.8 pg (27.0-31.0); Mean Corpuscular Volume 95.2 fL (78.0-98.0); Mean Platelet Volume 10.3 fL (7.4-10.4); Platelet Count 124 thou/uL (130-400); RBC Distribution Width 16.5 % (11.5-14.5); Red Blood Cell (RBC) Count 3.92 mill/uL (4.20-5.40)
--- NOTE | 2018-04-17 08:05 | RAD ---
SINGLE VIEW CHEST: Date: 04/17/18 COMPARISON: 07/22/17. HISTORY: Diaphoresis and chest pain. FINDINGS: Single view of the chest shows an enlarged but stable cardiomediastinal silhouette. The patient is st atus post CABG. There is no evidence of consolidation or mass. There may be a small left pleural effu richard. IMPRESSION: Cardiomegaly and small left pleural effusion. POS: [facility]
[2018-04-17 08:19] LABS: ALT (SGPT) 21 U/L (8-55); AST (SGOT) 19 U/L (5-34); Albumin 3.5 g/dL (3.4-4.8); Alkaline Phosphatase 95 U/L (40-150); Anion Gap 13 mmol/L (10-20); BUN (Urea Nitrogen) 34 mg/dL (9.8-20.1); Bilirubin, Total 0.7 mg/dL (0.2-1.2); CK (CPK) 57 U/L (29-168); Calc. Creatinine Clearance 0 mL/min (70-130); Calcium 8.9 mg/dL (7.8-10.44); Carbon Dioxide 25 mmol/L (23-31); Chloride 109 mmol/L (98-107); Estimated GFR-MDRD 31; Globulin 2.9 g/dL (2.4-3.5); Glucose 107 mg/dL (83-110); Potassium 3.3 mmol/L (3.5-5.1); Protein, Total 6.4 g/dL (6.0-8.3); Sodium 144 mmol/L (136-145)
[2018-04-17 08:24] LABS: CKMB 2.4 ng/mL (0-6.6); Troponin I 0.162 ng/mL (< 0.028)
[2018-04-17 08:34] LABS: Bilirubin Negative (Negative); Blood, Urine Negative (Negative); Clarity CLEAR (Clear); Glucose, Urine (Dipstick) Negative (Negative); Leukocyte Negative (Negative); Nitrite Negative (Negative); Protein, Urine (Dipstick) 300 mg/dL (Neg-Trace); Specific Gravity, Urine 1.012 (1.002-1.036); Urobilinogen 0.2 mg/dL (0.2-1.0)
[2018-04-17 08:39] LABS: Bacteria/HPF None Seen HPF (None Seen); Hyaline Casts/LPF 0-3 HYALINE CAST LPF (0-3 Hyaline); RBC/HPF 0-3 HPF (0-3); Squamous Epithelial 0-3 HPF (0-3); WBC/HPF 0-3 HPF (0-3)
[2018-04-17] MEDS ORDERED: Nitroglycerin 2% Ointment 1 INCH/1 GM Packet ONE (08:51)
[2018-04-17] MEDS ORDERED: Furosemide 40 MG/4 ML VIAL ONE (08:51)
[2018-04-17 11:07] LABS: Troponin I 0.162 ng/mL (< 0.028)
[2018-04-17] MEDS ORDERED: cloNIDine 0.1 MG TAB PO PRN (12:28)
[2018-04-17] MEDS ORDERED: Acetaminophen 325 MG TAB PO PRN (12:28)
[2018-04-17] MEDS ORDERED: HumaLOG 300 UNITS/3 ML VIAL SC PRN (12:32)
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
[2018-04-17] MEDS: Furosemide 40 MG/4 ML VIAL SLOW IVP SCH (13:51)
[2018-04-17] MEDS: Acetaminophen 325 MG TAB PO SCH ×4 (13:52→21:35)
[2018-04-17 14:09] LABS: Troponin I 0.127 ng/mL (< 0.028)
[2018-04-17] MEDS ORDERED: Communication Order-Pharmacy FS SCH (16:15)
--- NOTE | 2018-04-17 18:22 | CON ---
DATE OF CONSULTATION: 04/17/2018 CARDIOLOGY CONSULTATION INDICATION FOR CONSULTATION: This is a 73-year-old female with coronary artery disease, who has had a recent onset of severe cardiomyopathy. She has multiple other medical problems. HISTORY OF PRESENT ILLNESS: She is a very pleasant 73-year-old female who underwent bypass surgery m any years ago. Most recently, she underwent a cardiac catheterization in 09/2016 at which time she p resented with some chest discomfort. Cardiac catheterization revealed a patent HARRIS to the left ante rior descending artery, a totally occluded right coronary and the right coronary graft was occluded. She did have a left circumflex [place] vessel, which was about 90% stenosis, which underwent angiopla sty and stent placement. It was noted at that time that she did have some minimal filling of the dis selina right coronary artery to the left anterior descending artery. She continued to be followed on a routine basis, also has severe peripheral vascular disease and has undergone, I believe, an aortogram in the past with some angioplasty and stent placement to the right superficial femoral artery. She had an atherectomy of the right superficial femoral artery. She was seen in the office yesterday com plaining of lower extremity edema and fatigue. She was volume overloaded and was sent to the [facility] to have urgent IV Lasix. She said she felt better after that. This morning when she w lizeth up, the edema was gone. She went to the bathroom and said she was so weak, she could not get off the toilet and 911 was called and she was brought back to the emergency room. At this time, she was found to have still some evidence of mild congestive heart failure. Chest x-ray does not show overt failure, but only some mild abnormalities. Her BNP was elevated at 2671 and troponin I was indeterm inate at 0.162 that is now decreased down to 0.127. Yesterday in the office, we had discussed the po ssibility of an AICD implant since she has had a decrease in ejection fraction since at least November of this year. We discussed undergoing a repeat cardiac catheterization. I am suspicious that the saphe nous vein graft to the left anterior descending artery has occluded in the interim and this is why eugene andrews has a severe decrease in ejection fraction at this time and has developed congestive heart failure. Her echocardiogram in January of this year showed an ejection fraction of 20%-25% with moderate left v entricular dysfunction and also left ventricular dilatation. She does have some moderate mitral valv e regurgitation also and some mild aortic valve stenosis. We have put her on beta-blockers, which sh darryl is taking these medicines at home and we also increased her Lasix yesterday in the office, but she has not yet started taking the higher dose of the Lasix and she had an injection just yesterday at [facility]. She denies any chest pain or any shortness of breath. Overall, she just com plained that she was very weak. At this time, her EKG also does not show any significant acute de leon es to indicate ischemia. This morning, she also stated that she became very diaphoretic and has had an episode of similar several months ago. Her past medical history as well as her social history, review of systems, medications and allergies are all listed in the note that I placed in the chart from the office from yesterday. For the full n ote, please refer to this. PHYSICAL EXAMINATION: GENERAL: Today reveals an elderly female, who is in no acute distress. VITAL SIGNS: Her blood pressure is 149/74, heart rate is 94 and regular. She is afebrile, respirato ry rate is about 22. HEENT: Shows the head to be normocephalic and atraumatic. She has very soft bilateral carotid bruit s. CHEST: Has decreased breath sounds at the bases, otherwise appears to be clear. CARDIOVASCULAR: Reveals a regular rate and rhythm. I cannot ascertain an S3 or an S4 today and she does have a soft systolic murmur at the apex. Otherwise, no significant murmurs, heaves or thrills a re noted. She does have a slight heave, however, noted on the left parasternal area, which may be du e to some right ventricular volume overload. ABDOMEN: Soft and nontender. Positive bowel sounds are present. Femoral pulses are present with bi lateral femoral bruits. The right femoral pulse is slightly improved over the left. Popliteal pulse s are palpable. I cannot palpate pedal pulses. NEUROLOGIC: She appears to be fully intact. SKIN: Warm and dry. IMPRESSION AND PLAN: 1. Congestive heart failure exacerbation yesterday, which was improved by giving IV Lasix, which may be due to progression of coronary artery disease and graft closure involving the left anterior desce nding artery with a cardiomyopathy. We will address this. Most likely, she will need to undergo a c ardiac catheterization for evaluation of the coronary arteries and if this has worsened, I am not michael e there is any other intervention and certainly she is not a candidate for bypass surgery due to the very small size of the vessels. If necessary, she will undergo also an electrophysiological evaluati on, most likely on this admission and may need to be implanted with a defibrillator due to the severe decrease in left ventricular systolic function. 2. History of peripheral vascular disease. This will continue to be monitored. On her last cardiac catheterization, there was a focal dissection noted in the right external iliac when they attempted to place a catheter for her cardiac catheterization. Eventually, the catheter was placed on the left external iliac; however, both iliacs appear to be tortuous. She does have a better pulse on the rig ht side and we may try again to enter on the right side. 3. Chronic congestive heart failure. We will continue to diurese this lady. She does not appear to be dehydrated, but the volume overload is only mild at this time despite the elevated BNP. She does have I believe diastolic dysfunction and with the severe decrease in left ventricular systolic funct ion, would not be too unusual for the elevated BNP and also she said that she did have some palpitati ons at home and may be having intermittent atrial fibrillation. 4. Hypertension, which is stable at this time. We will continue those medications also. Further ca re of the patient will be determined after we evaluate the cardiac catheterization tomorrow.
[2018-04-17] MEDS ORDERED: Non-Formulary Item 1 EACH (Insulin Detemir 100 Units/Ml [Levemir] 30 UNIT) SQ SCH (21:00)
[2018-04-17] MEDS: Atorvastatin Calcium 40 MG TAB PO SCH (21:23)
[2018-04-17] MEDS: Insulin Glargine 30 UNITS in Pre-Filled Syringe 1 EACH SC SCH (21:23)
[2018-04-17] MEDS: Potassium Chloride 20 MEQ TAB PO SCH (21:23)
[2018-04-18] MEDS: Acetaminophen 325 MG TAB PO SCH ×6 (02:04→21:50)
[2018-04-18] MEDS: Potassium Chloride 20 MEQ TAB PO SCH ×2 (05:14→21:50)
[2018-04-18] MEDS: Fish Oil 1,000 MG CAP PO SCH (05:15)
[2018-04-18] MEDS: Furosemide 40 MG/4 ML VIAL SLOW IVP SCH (05:16)
[2018-04-18] MEDS: Amlodipine 5 MG TAB PO SCH (05:16)
[2018-04-18] MEDS: Multivit, Therapeutic 1 TAB PO SCH (05:16)
[2018-04-18 05:34] LABS: Anion Gap 13 mmol/L (10-20); BUN (Urea Nitrogen) 30 mg/dL (9.8-20.1); Calc. Creatinine Clearance 33 mL/min (70-130); Calcium 9.4 mg/dL (7.8-10.44); Carbon Dioxide 26 mmol/L (23-31); Chloride 107 mmol/L (98-107); Estimated GFR-MDRD 27; Glucose 128 mg/dL (83-110); Potassium 3.6 mmol/L (3.5-5.1); Sodium 142 mmol/L (136-145)
[2018-04-18 06:56] LABS: Hemoglobin 11.8 g/dL (12.0-16.0); Mean Corpuscular HGB CONC 32.3 g/dL (32.0-36.0); Mean Corpuscular Hemoglobin 30.9 pg (27.0-31.0); Mean Corpuscular Volume 95.6 fL (78.0-98.0); Mean Platelet Volume 10.3 fL (7.4-10.4); Platelet Count 138 thou/uL (130-400); RBC Distribution Width 16.7 % (11.5-14.5); Red Blood Cell (RBC) Count 3.84 mill/uL (4.20-5.40); White Blood Cell (WBC) Count 3.3 thou/uL (4.8-10.8)
[2018-04-18 07:19] LABS: #Eosinphils 0.1 thou/uL (0.0-0.7); #Lymphocytes 1.1 thou/uL (1.20-3.40); #Monocytes 0.3 thou/uL (0.11-0.59); #Neutrophils 1.8 thou/uL (1.40-6.50); %Basophils 1.3 % (0.0-1.0); %Eosinophils 2.5 % (0.0-10.0); %Lymphocytes 33.8 % (21.0-51.0); %Monocytes 8.1 % (0.0-10.0); %Neutrophils 54.3 % (42.0-75.0)
--- NOTE | 2018-04-18 08:16 | RAD ---
PORTABLE CHEST: DATE: 04/18/18. PROVIDED CLINICAL HISTORY: Congestive heart failure. FINDINGS: Comparison is 12/05/16. Cardiac silhouette remains enlarged. Median sternotomy changes are again not ed. Mediastinal clips are again seen. Prominence of the pulmonary vasculature and pulmonary interst itium. No focal consolidation, pleural fluid, or pneumothorax apparent. IMPRESSION: Findings suggesting congestive failure. Followup is recommended. POS: LAY
[2018-04-18] MEDS ORDERED: Fish Oil 1,000 MG CAP PO SCH (09:00)
[2018-04-18] MEDS ORDERED: Lidocaine 1% (PF) 30 ML VIAL ONE (10:27)
[2018-04-18] MEDS ORDERED: Iopamidol 370 76% 100 ML VIAL ONE (10:53)
[2018-04-18] MEDS ORDERED: Heparin 10,000 UNITS/1 ML VIAL ONE (11:28)
[2018-04-18] MEDS ORDERED: Nitroglycerin 100MG/250ML BOT 0 ML ONE (11:28)
[2018-04-18] MEDS ORDERED: Furosemide 40 MG/4 ML VIAL SLOW IVP SCH ×3 (12:08→14:00)
[2018-04-18] MEDS ORDERED: Morphine 4 MG/ML VIAL ONE (13:09)
[2018-04-18] MEDS ORDERED: Morphine 2 MG/ML SYRINGE SLOW IVP PRN (13:42)
[2018-04-18] MEDS ORDERED: Sodium Chloride 0.45% 1,000 ML IV SCH (13:45)
--- NOTE | 2018-04-18 15:29 | EKG ---
Test Reason : POST STENT Blood Pressure : / mmHG Vent. Rate : 086 BPM Atrial Rate : 086 BPM P-R Int : 168 ms QRS Dur : 124 ms QT Int : 432 ms P-R-T Axes : 058 -33 141 degrees QTc Int : 516 ms Sinus rhythm with occasional Premature ventricular complexes Possible Left atrial enlargement Left axis deviation Left ventricular hypertrophy with QRS widening and repolarization abnormality Abnormal ECG When compared with ECG of 17-APR-2018 07:42, (Unconfirmed) No significant change was found Confirmed by EMILY WEBSTER, SLuis ([id number]) on 04/18/2018 3:28:34 PM Referred By: KENTRELL Confirmed By:DR. Kathe DIAZ MD
[2018-04-18] MEDS: Atorvastatin Calcium 40 MG TAB PO SCH (21:50)
[2018-04-18] MEDS: Insulin Glargine 30 UNITS in Pre-Filled Syringe 1 EACH SC SCH (21:53)
[2018-04-19] MEDS: Acetaminophen 325 MG TAB PO SCH ×7 (03:26→20:44)
[2018-04-19 06:11] LABS: #Eosinphils 0.1 thou/uL (0.0-0.7); #Lymphocytes 1.1 thou/uL (1.20-3.40); #Monocytes 0.4 thou/uL (0.11-0.59); #Neutrophils 2.5 thou/uL (1.40-6.50); %Basophils 0.5 % (0.0-1.0); %Eosinophils 2.2 % (0.0-10.0); %Lymphocytes 26.8 % (21.0-51.0); %Monocytes 9.1 % (0.0-10.0); %Neutrophils 61.5 % (42.0-75.0); Hemoglobin 11.8 g/dL (12.0-16.0); Mean Corpuscular HGB CONC 30.7 g/dL (32.0-36.0); Mean Corpuscular Hemoglobin 29.8 pg (27.0-31.0); Mean Corpuscular Volume 97.2 fL (78.0-98.0); Mean Platelet Volume 10.1 fL (7.4-10.4); Platelet Count 140 thou/uL (130-400); Red Blood Cell (RBC) Count 3.96 mill/uL (4.20-5.40); White Blood Cell (WBC) Count 4.1 thou/uL (4.8-10.8)
[2018-04-19 06:31] LABS: ALT (SGPT) 14 U/L (8-55); AST (SGOT) 15 U/L (5-34); Albumin 3.5 g/dL (3.4-4.8); Alkaline Phosphatase 88 U/L (40-150); Anion Gap 10 mmol/L (10-20); BUN (Urea Nitrogen) 29 mg/dL (9.8-20.1); Bilirubin, Total 0.7 mg/dL (0.2-1.2); Calc. Creatinine Clearance 33 mL/min (70-130); Calcium 9.7 mg/dL (7.8-10.44); Carbon Dioxide 28 mmol/L (23-31); Chloride 107 mmol/L (98-107); Estimated GFR-MDRD 28; Globulin 2.7 g/dL (2.4-3.5); Glucose 106 mg/dL (83-110); Potassium 4.4 mmol/L (3.5-5.1); Protein, Total 6.2 g/dL (6.0-8.3); Sodium 141 mmol/L (136-145)
--- NOTE | 2018-04-19 08:41 | PRG ---
DATE OF SERVICE: 04/18/2018 SUBJECTIVE: The patient continues to feel weak. She denies chest pain or shortness of breath. She is waiting on her cardiac catheterization to be performed this morning. Denies nausea and vomiting j ust continues to feel weak with no energy. No falls. She is ambulating with assistance to the bathr oom. OBJECTIVE: VITAL SIGNS: Temperature 97.7, pulse of 92, respirations 20-24, pulse ox is 96% on 2 liters nasal ca nnula, blood pressure 128/73. GENERAL: She is awake and alert, in no acute distress. Speech is clear. NECK: Supple. HEART: Regular rate and rhythm. LUNGS: With rales bilaterally. ABDOMEN: Obese. EXTREMITIES: With trace edema. LABORATORY DATA: Reviewed. ASSESSMENT AND PLAN: 1. This is a 73-year-old female patient with known cardiomyopathy, now with congestive heart failure exacerbation. We will continue IV Lasix. Await cardiac catheterization as per Dr. Toledo. 2. Type 2 diabetes. We will continue insulin and sliding scale. 3. Weakness. I will await and see if she improves after her procedure.
--- NOTE | 2018-04-19 08:56 | PRG ---
DATE OF SERVICE: 04/19/2018 SUBJECTIVE: The patient continues to feel weak. She is having more difficulties getting around. Steffen andrews is moving in the room with assistance. She denies chest pain or shortness of breath, but she does appear to be fatigued in bed. She states that she has a poor appetite. She had some episodes of low blood sugars on her insulin. She tolerated the procedure yesterday with cardiac catheterization wit h stent placement. She denies any postoperative pain at this time. PHYSICAL EXAMINATION: VITAL SIGNS: Temperature 97.4, pulse of 81, respirations 16, blood pressure 142/84, pulse ox is 91% on room air, 96% on 2 liters nasal cannula. GENERAL: She is awake and alert. She appears fatigued, but in no acute distress. HEENT: Mucosa is moist. NECK: Supple. HEART: Regular rate and rhythm. LUNGS: Clear bilaterally. ABDOMEN: Soft. EXTREMITIES: With no edema. LABORATORY DATA: White blood cell count 4.1, hemoglobin and hematocrit 11.8 and 38.5, platelets of 1 40. Sodium 141, potassium 4.4, chloride 107, CO2 of 28, BUN and creatinine 29 and 1.8 with a GFR of 28. Serum glucose was 104. Urinalysis showed no active disease. ASSESSMENT AND PLAN: 1. This is a 73-year-old female admitted with congestive heart failure exacerbation, now status post cardiac catheterization with stent placement. I appreciate Dr. Toledo continued plan. She is still c onsidering implanted defibrillator. 2. Type 2 diabetes. We will decrease her insulin and encourage p.o. intake. We will initiate dieta ry supplements until her appetite is better. 3. Weakness. We will start PT, OT and consult rehabilitation for placement until she is strong enou gh to be home by herself.
--- NOTE | 2018-04-19 09:10 | PDOC.CTH ---
<Ame Narvaez - Last Filed: 04/19/18 09:54> Cardiology Progress Note - Subjective The pt seen and examined. No overnight events. No cardiac complaints. She complains of weakness with nausea. - Objective Vital Signs Temp Pulse Resp BP BP Pulse Ox 04/19/18 07:40 97.4 F L 81 16 142/84 H 91 L 04/19/18 03:42 97.6 F 88 21 H 160/93 H 92 L Weight 160 lb 8 oz 04/18/18 04/19/18 04/20/18 06:59 06:59 06:59 Intake Total 984 Output Total 400 0 Balance -400 984 - Physical Examination General/Neuro: alert & oriented x3 Neck: no JVD present Lungs: CTA Heart: RRR Abdomen: soft Extremities: other: (No edema) - Telemetry Telemetry Rhythm: SR 80s - Labs Result Diagrams: 04/19/18 05:09 04/19/18 05:09 Troponin/CKMB CK-MB (CK-2) 2.4 ng/mL (0-6.6) 04/17/18 07:48 Troponin I 0.127 ng/mL (< 0.028) H 04/17/18 13:37 - Assessment/Plan 1. CAD with S/p LHC with SAMUEL PCI x1 to Lt Cr on 04/18/18 - Start Plavix 75mg qd and ASA 81mg QD. On Metorpolol 100mg qd. Not on SUKHI/ARB due to CKD. 2. Acute on Chronic systolic HF - slowly improving with Lasix IV; Not on SUKHI/ ARB due to CKD. 3. Acute on CKD - no changed; cont. to monitor 4. HTN - stable 5. DM type 2 - stable, managed by PCP 6. PVD with hx of stent to lower extremities - stable 7. Hx of CVA 8. Weakness 9. Nausea - Zofran is given this AM MAR reviewed Review of Systems - Review of Systems Constitutional: reports: weakness EENTM: reports: no symptoms reported Respiratory: reports: no symptoms reported Cardiac (ROS): reports: no symptoms reported ABD/GI: reports: no symptoms reported : reports: no symptoms reported Musculoskeletal: reports: no symptoms reported Skin: reports: no symptoms reported Neurological: reports: no symptoms reported <Erin Toledo - Last Filed: 04/19/18 15:14> Cardiology Progress Note - Objective Vital Signs Temp Pulse Pulse Pulse Resp BP BP 04/19/18 11:50 80 18 04/19/18 10:50 76 85 133/73 04/19/18 10:08 81 142/84 H 04/19/18 07:40 97.4 F L 81 16 04/19/18 03:42 97.6 F 88 21 H BP BP BP Pulse Ox 04/19/18 11:50 141/68 H 96 04/19/18 10:50 142/68 H 04/19/18 10:08 04/19/18 07:40 142/84 H 91 L 04/19/18 03:42 160/93 H 92 L Weight 160 lb 8 oz 04/18/18 04/19/18 04/20/18 06:59 06:59 06:59 Intake Total 984 Output Total 400 0 Balance -400 984 - Labs Result Diagrams: 04/19/18 05:09 04/19/18 05:09 Troponin/CKMB CK-MB (CK-2) 2.4 ng/mL (0-6.6) 04/17/18 07:48 Troponin I 0.127 ng/mL (< 0.028) H 04/17/18 13:37 - Assessment/Plan Pt. seen and eval. by me. She is very nauseated at this time but denies chest pain. EKG no significant change. Chest clear. RRR. I agree with the A/P from the [facility]. If she is stable then perhaps she can be d/c'd tomorrow.
[2018-04-19] MEDS: Ondansetron HCl/PF 4 MG/2 ML Vial IVP PRN ×2 (09:29→15:04)
[2018-04-19] MEDS ORDERED: TICAGRELOR 90 MG TABLET PO SCH ×2 (10:00→21:00)
[2018-04-19] MEDS: Multivit, Therapeutic 1 TAB PO SCH (10:07)
[2018-04-19] MEDS: Fish Oil 1,000 MG CAP PO SCH (10:07)
[2018-04-19] MEDS: Furosemide 40 MG TAB PO SCH ×2 (10:07→15:03)
[2018-04-19] MEDS: Potassium Chloride 20 MEQ TAB PO SCH ×2 (10:08→20:45)
[2018-04-19] MEDS: Amlodipine 5 MG TAB PO SCH (10:08)
[2018-04-19] MEDS ORDERED: Clopidogrel Bisulfate 75 MG TAB PO SCH (10:30)
[2018-04-19] MEDS ORDERED: Promethazine 25 MG TAB PO PRN (13:15)
--- NOTE | 2018-04-19 15:26 | EKG ---
Test Reason : Blood Pressure : / mmHG Vent. Rate : 078 BPM Atrial Rate : 078 BPM P-R Int : 180 ms QRS Dur : 124 ms QT Int : 440 ms P-R-T Axes : 058 -22 148 degrees QTc Int : 501 ms Sinus rhythm with occasional Premature ventricular complexes Possible Left atrial enlargement Left ventricular hypertrophy with QRS widening and repolarization abnormality Abnormal ECG When compared with ECG of 18-APR-2018 13:24, No significant change was found Confirmed by EMILY WEBSTER, SLuis ([id number]) on 04/19/2018 3:26:10 PM Referred By: KENTRELL Confirmed By:DR. Kathe DIAZ MD
[2018-04-19] MEDS: Atorvastatin Calcium 40 MG TAB PO SCH (20:45)
[2018-04-19] MEDS: TICAGRELOR 90 MG TABLET PO SCH (20:45)
[2018-04-19] MEDS: Insulin Glargine 30 UNITS in Pre-Filled Syringe 1 EACH SC SCH (20:54)
[2018-04-20] MEDS: traMADol HCl 50 MG TAB PO PRN (04:30)
[2018-04-20] MEDS: Acetaminophen 325 MG TAB PO SCH ×7 (04:32→21:17)
[2018-04-20] MEDS: Furosemide 40 MG TAB PO SCH ×2 (08:09→15:12)
[2018-04-20] MEDS: TICAGRELOR 90 MG TABLET PO SCH ×2 (08:09→21:09)
[2018-04-20] MEDS: Potassium Chloride 20 MEQ TAB PO SCH ×2 (08:09→21:09)
[2018-04-20] MEDS: Fish Oil 1,000 MG CAP PO SCH (08:09)
[2018-04-20] MEDS: HumaLOG 300 UNITS/3 ML VIAL SC PRN ×2 (08:10→11:47)
[2018-04-20] MEDS: Amlodipine 5 MG TAB PO SCH (08:10)
[2018-04-20] MEDS: Multivit, Therapeutic 1 TAB PO SCH (08:10)
[2018-04-20] MEDS ORDERED: Clopidogrel Bisulfate 75 MG TAB PO SCH (09:00)
[2018-04-20 10:53] LABS: Anion Gap 10 mmol/L (10-20); BUN (Urea Nitrogen) 35 mg/dL (9.8-20.1); Calc. Creatinine Clearance 29 mL/min (70-130); Calcium 9.6 mg/dL (7.8-10.44); Carbon Dioxide 28 mmol/L (23-31); Chloride 107 mmol/L (98-107); Estimated GFR-MDRD 24; Glucose 169 mg/dL (83-110); Potassium 4.8 mmol/L (3.5-5.1); Sodium 140 mmol/L (136-145)
[2018-04-20 10:54] LABS: #Eosinphils 0.1 thou/uL (0.0-0.7); #Lymphocytes 0.9 thou/uL (1.20-3.40); #Monocytes 0.3 thou/uL (0.11-0.59); #Neutrophils 2.8 thou/uL (1.40-6.50); %Basophils 0.5 % (0.0-1.0); %Lymphocytes 21.5 % (21.0-51.0); %Monocytes 7.1 % (0.0-10.0); Hemoglobin 12.1 g/dL (12.0-16.0); Mean Corpuscular Hemoglobin 30.2 pg (27.0-31.0); Mean Corpuscular Volume 97.3 fL (78.0-98.0); Mean Platelet Volume 10.3 fL (7.4-10.4); PLT Morphology Comment Appears Adequate; Platelet Count 146 thou/uL (130-400); RBC Distribution Width 16.9 % (11.5-14.5); Red Blood Cell (RBC) Count 4.01 mill/uL (4.20-5.40); White Blood Cell (WBC) Count 4.1 thou/uL (4.8-10.8)
--- NOTE | 2018-04-20 14:19 | PRG ---
DATE OF SERVICE: 04/20/2018 SUBJECTIVE: The patient is doing well this morning. No complaints of chest pain or shortness of hannah ath. Her nausea for the past several days have resolved. OBJECTIVE: VITAL SIGNS: Temperature 96.2, pulse 72, blood pressure 135/74. HEART: Regular rate and rhythm. ABDOMEN: Soft. EXTREMITIES: With no edema. ASSESSMENT: 1. Coronary artery disease, status post left heart catheterization with stent x1 placed to the left circumflex. 2. Acute on chronic systolic heart failure. 3. Acute on chronic kidney disease, creatinine elevated. 4. Hypertension. 5. Diabetes. 6. Peripheral vascular disease, status post stent to lower extremity. 7. History of cerebrovascular accident. 8. Weakness. 9. Nausea, resolved. PLAN: 1. Continue physical therapy. 2. Continue to monitor CBC and basic metabolic today in the a.m. 3. Awaiting [facility] approval.
--- NOTE | 2018-04-20 15:56 | PDOC.CTH ---
Cardiology Progress Note - Subjective No new issues. No chest pain, tightness, pressure. No issues with her right groin. - Objective Vital Signs Temp Pulse Resp BP BP BP Pulse Ox 04/20/18 11:17 71 16 119/63 96 04/20/18 10:20 90 L 04/20/18 08:10 72 135/74 04/20/18 07:07 96 04/20/18 06:52 96.2 F L 72 14 135/74 96 Weight 160 lb 8 oz 04/19/18 04/20/18 04/21/18 06:59 06:59 06:59 Intake Total 984 570 Output Total 0 400 Balance 984 170 - Physical Examination General/Neuro: alert & oriented x3, NAD Neck: no JVD present Lungs: CTA, unlabored respirations Heart: RRR Abdomen: NT/ND Extremities: + edema B (trace) - Telemetry Telemetry Rhythm: NSR - Labs Result Diagrams: 04/20/18 10:27 04/20/18 10:27 Troponin/CKMB CK-MB (CK-2) 2.4 ng/mL (0-6.6) 04/17/18 07:48 Troponin I 0.127 ng/mL (< 0.028) H 04/17/18 13:37 - Assessment/Plan 1. CAD with S/P PCI to LCx. 2. Acute on Chronic systolic HF 3. Acute on CKD 4. HTN 5. DM type 2 6. PVD with hx of stent to lower extremities 7. Hx of CVA 8. Weakness PLAN - Continue MARVA. - Creatinine slightly increased today. Will monitor.
[2018-04-20] MEDS: Atorvastatin Calcium 40 MG TAB PO SCH (21:09)
[2018-04-20] MEDS: Insulin Glargine 30 UNITS in Pre-Filled Syringe 1 EACH SC SCH (21:10)
[2018-04-21] MEDS: Acetaminophen 325 MG TAB PO SCH ×6 (02:13→21:36)
[2018-04-21] MEDS: traMADol HCl 50 MG TAB PO PRN ×2 (02:14→21:51)
[2018-04-21 05:46] LABS: #Eosinphils 0.1 thou/uL (0.0-0.7); #Lymphocytes 0.9 thou/uL (1.20-3.40); #Monocytes 0.3 thou/uL (0.11-0.59); #Neutrophils 3.8 thou/uL (1.40-6.50); %Basophils 0.2 % (0.0-1.0); %Eosinophils 1.2 % (0.0-10.0); %Lymphocytes 17.2 % (21.0-51.0); %Monocytes 6.6 % (0.0-10.0); %Neutrophils 74.8 % (42.0-75.0); Hemoglobin 11.7 g/dL (12.0-16.0); Mean Corpuscular HGB CONC 31.4 g/dL (32.0-36.0); Mean Corpuscular Hemoglobin 30.7 pg (27.0-31.0); Mean Corpuscular Volume 97.7 fL (78.0-98.0); Mean Platelet Volume 10.5 fL (7.4-10.4); Platelet Count 131 thou/uL (130-400)
[2018-04-21 06:07] LABS: Anion Gap 14 mmol/L (10-20); BUN (Urea Nitrogen) 34 mg/dL (9.8-20.1); Calc. Creatinine Clearance 32 mL/min (70-130); Calcium 9.6 mg/dL (7.8-10.44); Carbon Dioxide 25 mmol/L (23-31); Chloride 107 mmol/L (98-107); Estimated GFR-MDRD 27; Glucose 117 mg/dL (83-110); Sodium 142 mmol/L (136-145)
--- NOTE | 2018-04-21 07:53 | PRG ---
DATE OF SERVICE: 04/21/2018 SUBJECTIVE: The patient is doing well this morning. No complaints. Slept well. OBJECTIVE: VITAL SIGNS: Temperature 97.4, pulse 73, respirations 16, pulse ox 95, blood pressure 132/64. HEART: Regular rate and rhythm. LUNGS: Clear. ABDOMEN: Soft, nontender. EXTREMITIES: No edema. LABORATORY DATA: Electrolytes normal. Creatinine down from 2.02-1.85, BUN 35-34, blood sugar 117 an d 131. White count 5.0, H&H 11 and 37. ASSESSMENT: 1. Coronary artery disease, status post left heart catheterization with stent x1. 2. Acute on chronic systolic heart failure. 3. Acute on chronic kidney disease, creatinine improved. 4. Hypertension. 5. Diabetes. 6. Peripheral vascular disease, status post stents to lower extremity. 7. History of cerebrovascular accident 8. Weakness. 9. Nausea, resolved. PLAN: 1. Continue physical therapy. 2. Awaiting [facility] approval. 3. Continue to monitor CBC and electrolytes.
[2018-04-21] MEDS: Multivit, Therapeutic 1 TAB PO SCH (09:29)
[2018-04-21] MEDS: Furosemide 40 MG TAB PO SCH ×2 (09:29→15:35)
[2018-04-21] MEDS: Potassium Chloride 20 MEQ TAB PO SCH ×2 (09:29→21:37)
[2018-04-21] MEDS: Fish Oil 1,000 MG CAP PO SCH (09:29)
[2018-04-21] MEDS: TICAGRELOR 90 MG TABLET PO SCH ×2 (09:29→21:37)
[2018-04-21] MEDS: Amlodipine 5 MG TAB PO SCH (09:34)
--- NOTE | 2018-04-21 18:34 | PDOC.CTH ---
Cardiology Progress Note - Subjective She is having more SOB. no edema. - Objective Vital Signs Temp Pulse Resp BP BP Pulse Ox 04/21/18 16:45 98.0 F 77 18 122/68 92 L 04/21/18 14:27 73 18 04/21/18 11:55 98 F 70 18 115/62 97 04/21/18 08:00 94 L 04/21/18 07:20 97.8 F 76 18 105/63 94 L Weight 162 lb 11.2 oz 04/20/18 04/21/18 04/22/18 06:59 06:59 06:59 Intake Total 570 1058 730 Output Total 400 400 600 Balance 170 658 130 - Labs Result Diagrams: 04/21/18 04:38 04/21/18 04:38 Troponin/CKMB CK-MB (CK-2) 2.4 ng/mL (0-6.6) 04/17/18 07:48 Troponin I 0.127 ng/mL (< 0.028) H 04/17/18 13:37 - Assessment/Plan 1. CAD with S/P PCI to LCx. 2. Acute on Chronic systolic HF 3. Acute on CKD 4. HTN 5. DM type 2 6. PVD with hx of stent to lower extremities 7. Hx of CVA 8. SOB PLAN - Continue MARVA. - Creatinine slightly increased today. Will monitor. - Continue PO lasix. Creatinine improving. - Nebs started today.
[2018-04-21] MEDS: Carvedilol 3.125 MG TAB PO SCH (21:36)
[2018-04-21] MEDS: Atorvastatin Calcium 40 MG TAB PO SCH (21:37)
[2018-04-21] MEDS: Insulin Glargine 30 UNITS in Pre-Filled Syringe 1 EACH SC SCH (21:52)
[2018-04-22] MEDS: Acetaminophen 325 MG TAB PO SCH ×6 (03:56→20:57)
--- NOTE | 2018-04-22 07:43 | PRG ---
DATE OF SERVICE: 04/22/2018 SUBJECTIVE: The patient is feeling much better. She denies chest pain, shortness of breath. She st ates that she is walking in the hallway this weekend without difficulty. Denies nausea and vomiting. She is tolerating her diet. Her shortness of breath improved with the neb treatments over the week end. States that she still feels weak, but improving. OBJECTIVE: VITAL SIGNS: Temperature 98.1, pulse of 83 and regular, respirations 16, blood pressure 145/67, puls e ox 93% on room air. GENERAL: She is awake and alert, in no acute distress. Speech is clear. HEENT: Mucosa is moist. NECK: Supple. Positive bruit. HEART: Regular rate and rhythm. LUNGS: With scattered rhonchi, worse on the left side. No wheezes. ABDOMEN: Obese, soft. EXTREMITIES: With 1+ peripheral pulses, no edema. LABORATORY DATA: Accu-Cheks 55, 182, 137, 199. Base met and chest x-ray are pending. ASSESSMENT AND PLAN: This is a 73-year-old female patient with known atherosclerotic cardiovascular disease, now status post left heart catheterization with stent to the left circumflex. She is doing well. Awaiting placement to inpatient rehabilitation. 1. Acute on chronic systolic heart failure, stable on Lasix. 2. Acute on chronic kidney disease is improved. We will continue to follow. 3. Hypertension is stable. 4. Type 2 diabetes. We will continue medications and insulin sliding scale. 5. Weakness. Awaiting PT and inpatient rehab approval. 6. Dyspnea. We will recheck chest x-ray. Continue nebs as needed. Likely secondary to decondition ing and heart failure.
--- NOTE | 2018-04-22 08:07 | RAD ---
AP VIEW OF THE CHEST: INDICATION: History of dyspnea. COMPARISON: Prior exam dated 04/17/18. FINDINGS: There is stable cardiomegaly and pulmonary vascular congestion. There is worsening central edema and bilateral pleural effusions. Midline sternotomy changes and prior CABG change is stable. Right tot al shoulder replacement is similar. Severe osteoarthrosis of the left glenohumeral joint is stable. IMPRESSION: Worsening congestive heart failure to a recent comparison examination dated 04/17/18. POS: LAY
--- NOTE | 2018-04-22 08:38 | PDOC.CTH ---
<Ame Narvaez - Last Filed: 04/22/18 08:37> Cardiology Progress Note - Subjective The pt seen and examined. No overnight events. No cardiac complaints. She feels more energy today. - Objective Vital Signs Temp Pulse Resp BP BP Pulse Ox 04/22/18 08:00 98.1 F 87 18 123/64 94 L 04/22/18 07:25 88 16 93 L 04/22/18 05:24 98.1 F 83 16 145/67 H 93 L 04/22/18 00:59 78 14 92 L Weight 158 lb 2 oz 04/21/18 04/22/18 04/23/18 06:59 06:59 06:59 Intake Total 1058 1210 Output Total 400 600 Balance 658 610 - Physical Examination General/Neuro: alert & oriented x3 Neck: no JVD present Lungs: other: (coarses and diminished at bases) Heart: RRR Abdomen: soft Extremities: other: (No edema) - Telemetry Telemetry Rhythm: SR PVCs, 90s - Labs Result Diagrams: 04/21/18 04:38 04/21/18 04:38 Troponin/CKMB CK-MB (CK-2) 2.4 ng/mL (0-6.6) 04/17/18 07:48 Troponin I 0.127 ng/mL (< 0.028) H 04/17/18 13:37 - Assessment/Plan 1. CAD with S/p LHC with SAMUEL PCI x1 to Lt Cr on 04/18/18 - On Plavix 75mg qd and ASA 81mg QD. On Metorpolol 100mg qd. Not on SUKHI/ARB due to CKD. 2. Acute on Chronic systolic HF - stable with Lasix 40mg BID; Not on SUKHI/ARB due to CKD. 3. Acute on CKD - improving; cont. to monitor 4. HTN - stable 5. DM type 2 - stable, managed by PCP 6. PVD with hx of stent to lower extremities - stable 7. Hx of CVA 8. Weakness 9. Nausea - Zofran is given this AM MAR reviewed * SOB stable with neb; waiting for rehab placement. Review of Systems - Review of Systems Constitutional: reports: weakness EENTM: reports: no symptoms reported Respiratory: reports: no symptoms reported Cardiac (ROS): reports: no symptoms reported ABD/GI: reports: no symptoms reported : reports: no symptoms reported Musculoskeletal: reports: no symptoms reported <Erin Toledo - Last Filed: 04/22/18 12:59> Cardiology Progress Note - Objective Vital Signs Temp Pulse Resp BP BP Pulse Ox 04/22/18 08:00 98.1 F 87 18 123/64 94 L 04/22/18 07:25 88 16 93 L 04/22/18 05:24 98.1 F 83 16 145/67 H 93 L 04/22/18 00:59 78 14 92 L Weight 158 lb 2 oz 04/21/18 04/22/18 04/23/18 06:59 06:59 06:59 Intake Total 1058 1210 Output Total 400 600 Balance 658 610 - Labs Result Diagrams: 04/21/18 04:38 04/22/18 08:59 Troponin/CKMB CK-MB (CK-2) 2.4 ng/mL (0-6.6) 04/17/18 07:48 Troponin I 0.127 ng/mL (< 0.028) H 04/17/18 13:37 - Assessment/Plan pt. seen and eval. by me. I agree with the A/p by the COATER ASSOCIATE. The renal function appears worse today. the I/O's may not be accurate. The urine output is decreased. she has a severe decrease in the EF. Will advise Life-Vest. In the future she will likely require an AICD if she is agreeable. Chest : decreased bases.RRR.
[2018-04-22 09:27] LABS: Anion Gap 13 mmol/L (10-20); BUN (Urea Nitrogen) 34 mg/dL (9.8-20.1); Calc. Creatinine Clearance 27 mL/min (70-130); Calcium 9.2 mg/dL (7.8-10.44); Carbon Dioxide 25 mmol/L (23-31); Chloride 105 mmol/L (98-107); Estimated GFR-MDRD 23; Glucose 263 mg/dL (83-110); Sodium 139 mmol/L (136-145)
[2018-04-22] MEDS: Furosemide 40 MG TAB PO SCH ×2 (10:04→14:12)
[2018-04-22] MEDS: TICAGRELOR 90 MG TABLET PO SCH ×2 (10:04→20:57)
[2018-04-22] MEDS: Potassium Chloride 20 MEQ TAB PO SCH (10:04)
[2018-04-22] MEDS: Carvedilol 3.125 MG TAB PO SCH ×2 (10:05→20:57)
[2018-04-22] MEDS: Fish Oil 1,000 MG CAP PO SCH (10:05)
[2018-04-22] MEDS: Multivit, Therapeutic 1 TAB PO SCH (10:05)
--- NOTE | 2018-04-22 14:23 | ULT ---
ULTRASOUND RETROPERITONEUM COMPLETE: (RENAL) HISTORY: 73-year-old female with renal failure. FINDINGS: Right kidney: 10.5 x 4.5 x 5.5 cm. Right renal parenchymal thickness and echogenicity are normal. No right sided hydronephrosis. No mode rate sized or large renal cysts. Left kidney: 6.6 x 4.5 x 3 cm. Left renal parenchyma is diffusely thin. No left sided hydronephrosis. No left sided moderate sized o r large renal cysts. Unremarkable appearance of urinary bladder. Incidental finding of left pleural effusion. IMPRESSION: 1. Small left kidney with thin cortex, probably hypofunctioning or nonfunctioning. 2. Normal sonographic appearance to the right kidney. 3. Left pleural effusion. ALICE Massey POS: LAY
[2018-04-22] MEDS: Atorvastatin Calcium 40 MG TAB PO SCH (20:57)
[2018-04-22] MEDS: Insulin Glargine 30 UNITS in Pre-Filled Syringe 1 EACH SC SCH (21:01)
--- NOTE | 2018-04-23 00:12 | CON ---
DATE OF CONSULTATION: 04/22/2018 CONSULTING PHYSICIAN: Dr. Rudd. REASON FOR CONSULTATION: Acute kidney. REASON FOR ADMISSION: Shortness of breath. HISTORY OF PRESENT ILLNESS: A 73-year-old female with history of coronary artery disease, CKD and fo llows with Dr. Hendrix, hypertension, hyperlipidemia, CVA, came to the hospital with shortness of breath and Nephrology is consulted. The patient does follow with Dr. Hendrix, patient's baseline creatinine i s around 1.4-1.7, this morning was found to be 2.1. Creatinine today was 1.8. She also had a stent placed and cardiac catheterization during this admission which was on 04/17. Patient reports that he r swelling is much better. Her shortness of breath is much better. No nausea, vomiting, diarrhea, n o chest pain, palpitation. PAST MEDICAL HISTORY: Positive for coronary artery disease, peripheral vascular disease, CVA, hypert ension, hyperlipidemia. PAST SURGICAL HISTORY: CABG, spinal surgeries. HOME MEDICATIONS: Lasix, atorvastatin, aspirin, gabapentin, Levemir, tramadol, metoprolol, potassium , Plavix, amlodipine. ALLERGIES: CLINDAMYCIN, METFORMIN. SOCIAL HISTORY: No smoking, alcohol, or illicit drug abuse. FAMILY HISTORY: No history of kidney disease. REVIEW OF SYSTEMS: The following complete review of systems was negative, unless otherwise mentioned in the HPI or below: Constitutional: Weight loss or gain, ability to conduct usual activities. Sk in: Rash, itching. Eyes: Double vision, pain. ENT/Mouth: Nose bleeding, neck stiffness, pain, te nderness. Cardiovascular: Palpitations, dyspnea on exertion, orthopnea. Respiratory: Shortness of breath, wheezing, cough, hemoptysis, fever or night sweats. Gastrointestinal: Poor appetite, abdom inal pain, heartburn, nausea, vomiting, constipation, or diarrhea. Genitourinary: Urgency, frequenc y, dysuria, nocturia. Musculoskeletal: Pain, swelling. Neurologic/Psychiatric: Anxiety, depressio n. Allergy/Immunologic: Skin rash, bleeding tendency. PHYSICAL EXAMINATION: GENERAL: female, in no apparent distress. VITAL SIGNS: Temperature blood pressure 177/97. HEENT: Atraumatic, normocephalic. Oral mucosa is moist. NECK: Supple. HEART: S1, S2 heard. Rate and rhythm regular. RESPIRATORY: Clear. GASTROINTESTINAL: Abdomen is soft. MUSCULOSKELETAL: No tenderness, no edema. DERMATOLOGIC: No skin rash. NEUROLOGIC: Alert, awake. PSYCHIATRIC: Mood and affect normal. LABORATORY DATA: Hemoglobin is 11.7, potassium 4.0, BUN is 34, creatinine is 2.0. ASSESSMENT AND PLAN: 1. Acute kidney injury on chronic kidney disease stage 3-4, we will recommend to reduce Lasix to 1 p .o. daily. Her swelling is much better. 2. Anemia, mild. 3. Edema. 4. Cardiorenal syndrome. 5. Hypertension. Titrate medications. 6. Recommend reducing the Lasix dose as tolerated. Avoid nephrotoxins. Agree with holding SUKHI inhi bitor or ARBs at this point due to chronic kidney disease and acute kidney injury. Renally dose all the medications. Cautious use of potassium. Potassium level is stable. We will reduce the potassiu m dose to 1 p.o. daily and monitor. Prognosis guarded.
[2018-04-23] MEDS: Acetaminophen 325 MG TAB PO SCH ×6 (02:05→21:37)
--- NOTE | 2018-04-23 08:26 | PRG ---
DATE OF SERVICE: 04/23/2018 SUBJECTIVE: The patient is feeling better. She is ambulating in the room and in the verdugo with minim al shortness of breath, denies chest pain. The nausea has resolved at this time. Her appetite is go od. She is no longer needing neb treatments. The patient is anxious to go to the rehab unit. OBJECTIVE: VITAL SIGNS: Temperature 98.1, pulse 93-96, respirations 18, blood pressure 139/82, pulse oximetry i s 95% on room air. GENERAL: She is awake and alert, in no acute distress. Speech is clear. HEENT: Mucosa is moist. NECK: Supple. HEART: Regular rate and rhythm with 2/6 systolic ejection murmur. LUNGS: With rales at the bases. ABDOMEN: Obese, soft. EXTREMITIES: With no edema. LABORATORY DATA: Base met is pending. Accu-Cheks of 125, 145, 102, 192. Renal ultrasound from yesterday revealed a small left kidney within cortex probably hypofunctioning o r nonfunctioning, normal right kidney, left pleural effusion. ASSESSMENT AND PLAN: This is a 73-year-old female patient with type 2 diabetes, hypertension, hyperl ipidemia, coronary artery disease, status post left heart catheterization with stent placement contin uing Plavix, aspirin, metoprolol as per Cardiology. 1. Acute on chronic systolic heart failure with cardiomyopathy on Lasix once daily and potassium sup plement. 2. Acute on chronic kidney disease worse after heart catheterization. I appreciate Nephrology evalu ation. We will continue renally dosed Lasix at this time and continue to monitor closely. Hopefully , will improve as the heart catheterization has been completed. 3. Hypertension is stable. 4. Type 2 diabetes. We will continue medications and close monitoring. DISPOSITION: Hopefully transfer to inpatient rehab for strength training, and fall prevention prior to her going home with home health.
[2018-04-23] MEDS: Furosemide 40 MG TAB PO SCH (08:54)
[2018-04-23] MEDS: TICAGRELOR 90 MG TABLET PO SCH ×2 (08:54→22:09)
[2018-04-23] MEDS: Carvedilol 3.125 MG TAB PO SCH (08:54)
[2018-04-23] MEDS: Potassium Chloride 20 MEQ TAB PO SCH (08:54)
[2018-04-23] MEDS: Fish Oil 1,000 MG CAP PO SCH (08:54)
[2018-04-23] MEDS: Multivit, Therapeutic 1 TAB PO SCH (08:54)
[2018-04-23 09:20] LABS: Anion Gap 14 mmol/L (10-20); BUN (Urea Nitrogen) 27 mg/dL (9.8-20.1); Calc. Creatinine Clearance 35 mL/min (70-130); Carbon Dioxide 26 mmol/L (23-31); Chloride 105 mmol/L (98-107); Estimated GFR-MDRD 30; Glucose 170 mg/dL (83-110); Potassium 3.9 mmol/L (3.5-5.1); Sodium 141 mmol/L (136-145)
[2018-04-23] MEDS: HumaLOG 300 UNITS/3 ML VIAL SC PRN (11:16)
[2018-04-23] MEDS ORDERED: Carvedilol 3.125 MG TAB PO SCH (12:00)
--- NOTE | 2018-04-23 13:12 | PDOC.CTH ---
<Ame Narvaez - Last Filed: 04/23/18 13:09> Cardiology Progress Note - Subjective The pt seen and examined. No overnight events. No cardiac complaints. She would like to go home instead of rehab. - Objective Vital Signs Temp Pulse Pulse Pulse Resp BP BP 04/23/18 11:20 98.1 F 92 99 93 18 179/79 H 143/81 H 04/23/18 07:19 98.1 F 96 18 04/23/18 06:27 93 18 04/23/18 03:13 98.3 F 96 20 BP Pulse Ox Pulse Ox Pulse Ox 04/23/18 11:20 143/81 H 93 L 94 L 92 L 04/23/18 07:19 139/82 95 04/23/18 06:27 95 04/23/18 03:13 149/72 H 97 Weight 158 lb 2 oz 04/22/18 04/23/18 04/24/18 06:59 06:59 06:59 Intake Total 1210 1200 Output Total 600 1150 Balance 610 50 - Physical Examination General/Neuro: alert & oriented x3 Neck: no JVD present Lungs: CTA (dminished at bases) Heart: RRR Abdomen: soft Extremities: other: (No edema) - Telemetry Telemetry Rhythm: SR - Labs Result Diagrams: 04/21/18 04:38 04/23/18 08:48 Troponin/CKMB CK-MB (CK-2) 2.4 ng/mL (0-6.6) 04/17/18 07:48 Troponin I 0.127 ng/mL (< 0.028) H 04/17/18 13:37 - Assessment/Plan 1. CAD with S/p LHC with SAMUEL PCI x1 to Lt Cr on 04/18/18 - On Plavix 75mg qd and ASA 81mg QD. On Metorpolol 100mg qd. Not on SUKHI/ARB due to CKD. 2. Acute on Chronic systolic HF - stable with Lasix 40mg BID; Not on SUKHI/ARB due to CKD. D/c home with LifeVest 3. Acute on CKD - improving; cont. to monitor 4. HTN - stable 5. DM type 2 - stable, managed by PCP 6. PVD with hx of stent to lower extremities - stable 7. Hx of CVA 8. Weakness - improving 9. Nausea - stable MAR reviewed * SOB stable with neb; waiting for rehab placement. * D/c to rehab with LifeVest. The pt will f/u with Dr Toledo' office within 2wks. Review of Systems - Review of Systems Constitutional: reports: no symptoms reported EENTM: reports: no symptoms reported Respiratory: reports: no symptoms reported Cardiac (ROS): reports: no symptoms reported ABD/GI: reports: no symptoms reported : reports: no symptoms reported Musculoskeletal: reports: no symptoms reported Skin: reports: no symptoms reported <Erin Toledo - Last Filed: 04/24/18 12:47> Cardiology Progress Note - Objective Vital Signs Temp Pulse Resp BP BP BP Pulse Ox 04/24/18 09:43 135/74 04/24/18 07:40 98 F 85 16 150/74 H 95 04/24/18 07:09 89 16 93 L 04/24/18 04:00 97.8 F 99 16 137/88 97 04/24/18 01:01 86 16 96 Weight 157 lb 04/23/18 04/24/18 04/25/18 06:59 06:59 06:59 Intake Total 1200 1735 Output Total 1150 2350 Balance 50 -615 - Labs Result Diagrams: 04/21/18 04:38 04/24/18 04:33 Troponin/CKMB CK-MB (CK-2) 2.4 ng/mL (0-6.6) 04/17/18 07:48 Troponin I 0.127 ng/mL (< 0.028) H 04/17/18 13:37 - Assessment/Plan Pt. seen and eval. by me. I agree with the A/P by the [employer]. Overall she is feeling better but still weak. She has the LifeVest. hopefully to rehab in the next 1-2 days.
--- NOTE | 2018-04-23 19:00 | PRG ---
DATE OF SERVICE: 04/23/2018 SUBJECTIVE: Patient was seen and examined at bedside and overnight events noted. Patient denies any shortness of breath or chest pain or palpitation. No history of nausea or vomitin g or diarrhea or fever or chills or cramps. OBJECTIVE: GENERAL: This is a well-built female, in no apparent distress. VITAL SIGNS: Temperature 97.8, pulse , respiratory rate 16, blood pressure 129/67. HEENT: Atraumatic, normocephalic. Oral mucosa is moist. NECK: Supple. CARDIOVASCULAR: S1 and S2 heard. Rate and rhythm regular. RESPIRATORY: Clear to auscultation. GASTROINTESTINAL: Abdomen is soft. MUSCULOSKELETAL: No tenderness. No edema. DERMATOLOGIC: No skin rash. NEUROLOGIC: Alert and awake and oriented x3. No focal neurologic deficits. Moving all the extremit ies. PSYCHIATRIC: Mood and affect normal. LABORATORY DATA: Potassium is 3.9, BUN 27, creatinine is 1.6. ASSESSMENT AND PLAN: 1. Acute kidney injury. Renal function is getting better. 2. Anemia, mild. 3. Edema, cautious use of diuretics. 4. Cardiorenal syndrome. Follow with Cardiology 5. Hypertension, stable. 6. We will titrate diuretic dose as tolerated.
[2018-04-23] MEDS: Atorvastatin Calcium 40 MG TAB PO SCH (21:37)
[2018-04-23] MEDS: Insulin Glargine 30 UNITS in Pre-Filled Syringe 1 EACH SC SCH (21:37)
[2018-04-23] MEDS: traMADol HCl 50 MG TAB PO PRN (21:38)
[2018-04-23] MEDS: Carvedilol 6.25 MG TAB PO SCH (21:38)
[2018-04-24] MEDS: Acetaminophen 325 MG TAB PO SCH ×6 (03:08→21:17)
[2018-04-24 05:27] LABS: Anion Gap 12 mmol/L (10-20); BUN (Urea Nitrogen) 34 mg/dL (9.8-20.1); Calc. Creatinine Clearance 34 mL/min (70-130); Carbon Dioxide 29 mmol/L (23-31); Chloride 105 mmol/L (98-107); Estimated GFR-MDRD 30; Glucose 102 mg/dL (83-110); Potassium 4.3 mmol/L (3.5-5.1); Sodium 142 mmol/L (136-145)
--- NOTE | 2018-04-24 08:20 | PRG ---
DATE OF SERVICE: 04/24/2018 SUBJECTIVE: The patient continues to improve. She is ambulating in the verdugo, walked up to 400 feet yesterday. She does have some shortness of breath, some conversational dyspnea, but denies chest melody n. She is tolerating the LifeVest. Appetite is improved. She is no longer having any nausea. She did get a neb treatment last night for some shortness of breath with improvement. Continues to await decision on rehab placement. PHYSICAL EXAMINATION: VITAL SIGNS: Temperature 97.8, pulse of 89 and regular, respirations 16, blood pressure 137/88, puls e ox is 93-97% on 2 liters nasal cannula. GENERAL: She is awake and alert, in no acute distress. Speech is clear. NECK: Supple. Left-sided bruit. HEART: Regular rate and rhythm. LUNGS: With rales at the bases. ABDOMEN: Obese, soft. EXTREMITIES: With no edema. LABORATORY DATA: White blood cell count 5000, hemoglobin and hematocrit 11.7 and 37.1, platelets of 131. Sodium 142, potassium 4.3, chloride 105, CO2 of 29, BUN and creatinine 34 and 1.69 with a GFR o f 30. Accu-Cheks of 97, 255, 249, 231, calcium of 10.0. ASSESSMENT AND PLAN: This is a 73-year-old female patient with multiple medical problems, admitted f or a congestive heart failure exacerbation, status post left heart catheterization with stent placeme nt and LifeVest placement. 1. Acute on chronic systolic heart failure with cardiomyopathy, appears to be stable on Lasix once d aily and potassium supplement. 2. Acute on chronic kidney disease, stable. I appreciate Nephrology evaluation. Ultrasound reveals 1 nonfunctioning kidney. 3. Hypertension, stable. 4. Type 2 diabetes. Will increase medications for tighter control. DISPOSITION: Awaiting rehab placement and insurance approval. She is clear for discharge once that occurs. The patient and family are considering discharging her home if she does not approve to stay with her daughter for short term.
[2018-04-24] MEDS: Carvedilol 6.25 MG TAB PO SCH ×2 (09:43→21:17)
[2018-04-24] MEDS: Furosemide 40 MG TAB PO SCH (09:43)
[2018-04-24] MEDS: Fish Oil 1,000 MG CAP PO SCH (09:43)
[2018-04-24] MEDS: Multivit, Therapeutic 1 TAB PO SCH (09:44)
[2018-04-24] MEDS: Potassium Chloride 20 MEQ TAB PO SCH (09:44)
[2018-04-24] MEDS: TICAGRELOR 90 MG TABLET PO SCH ×2 (09:44→21:19)
--- NOTE | 2018-04-24 15:35 | PDOC.CTH ---
Cardiology Progress Note - Objective Vital Signs Temp Pulse Pulse Pulse Resp BP BP 04/24/18 13:32 70 16 04/24/18 12:55 98.1 F 84 16 04/24/18 11:58 111 H 82 130/69 04/24/18 09:43 135/74 04/24/18 07:40 98 F 85 16 04/24/18 07:09 89 16 04/24/18 04:00 97.8 F 99 16 BP BP BP Pulse Ox Pulse Ox Pulse Ox 04/24/18 13:32 95 04/24/18 12:55 132/69 94 L 04/24/18 11:58 132/69 94 L 90 L 04/24/18 09:43 04/24/18 07:40 150/74 H 95 04/24/18 07:09 93 L 04/24/18 04:00 137/88 97 Weight 157 lb 04/23/18 04/24/18 04/25/18 06:59 06:59 06:59 Intake Total 1200 1735 Output Total 1150 2350 Balance 50 -615 - Physical Examination General/Neuro: alert & oriented x3 Neck: no JVD present Lungs: CTA Heart: RRR Abdomen: soft - Labs Result Diagrams: 04/21/18 04:38 04/24/18 04:33 Troponin/CKMB CK-MB (CK-2) 2.4 ng/mL (0-6.6) 04/17/18 07:48 Troponin I 0.127 ng/mL (< 0.028) H 04/17/18 13:37 - Assessment/Plan 1. CAD with S/p LHC with SAMUEL PCI x1 to Lt Cr on 04/18/18 - On Plavix 75mg qd and ASA 81mg QD. On Metorpolol 100mg qd. Not on SUKHI/ARB due to CKD. 2. Acute on Chronic systolic HF - stable with Lasix 40mg BID; Not on SUKHI/ARB due to CKD. D/c home with LifeVest 3. Acute on CKD - improving; cont. to monitor 4. HTN - stable 5. DM type 2 - stable, managed by PCP 6. PVD with hx of stent to lower extremities - stable 7. Hx of CVA 8. Weakness - improving 9. Nausea - resolved but poor appetite. MAR reviewed * SOB stable with neb; waiting for rehab placement. Life-Vest fitted yesterday. She had problems to sleep with it yesterday. * D/c to rehab with LifeVest. The pt will f/u with Dr Toledo' office within 2wks.
--- NOTE | 2018-04-24 18:27 | PRG ---
DATE OF SERVICE: 04/24/2018 SUBJECTIVE: Patient was seen and examined at bedside and overnight events noted. Patient denies any shortness of breath or chest pain or palpitation. No history of nausea or vomiting or diarrhea or f ever or chills or cramps. OBJECTIVE: GENERAL: This is a well-built female in no apparent distress. VITAL SIGNS: Temperature 98.1, pulse 77, respiratory 18, blood pressure 124/88. HEENT: Atraumatic, normocephalic. Oral mucosa is moist. NECK: Supple. CARDIOVASCULAR: S1, S2 heard. Rate and rhythm regular. RESPIRATORY: Clear to auscultation. GASTROINTESTINAL: Abdomen is soft. MUSCULOSKELETAL: No tenderness. No edema. DERMATOLOGIC: No skin rash. NEUROLOGIC: Alert and awake and oriented x3. No focal neurologic deficits. Moving all the extremiti es. PSYCHIATRIC: Mood and affect normal. LABORATORY DATA: Potassium is 4.3, BUN is 34, creatinine is 1.7. ASSESSMENT AND PLAN: 1. Acute kidney injury, stable,. 2. Chronic kidney disease stage 3. 3. Edema. 4. 5. Hypertension. Labs are stable.
[2018-04-24] MEDS: Atorvastatin Calcium 40 MG TAB PO SCH (21:17)
[2018-04-24] MEDS: Insulin Glargine 35 UNITS in Pre-Filled Syringe 1 EACH SC SCH (21:18)
[2018-04-24] MEDS: traMADol HCl 50 MG TAB PO PRN (21:19)
[2018-04-25] MEDS: Acetaminophen 325 MG TAB PO SCH ×6 (02:47→21:16)
[2018-04-25] MEDS: Carvedilol 6.25 MG TAB PO SCH ×2 (08:48→21:15)
[2018-04-25] MEDS: Fish Oil 1,000 MG CAP PO SCH (08:48)
[2018-04-25] MEDS: Potassium Chloride 20 MEQ TAB PO SCH (08:48)
[2018-04-25] MEDS: Multivit, Therapeutic 1 TAB PO SCH (08:48)
[2018-04-25] MEDS: TICAGRELOR 90 MG TABLET PO SCH ×2 (08:48→21:15)
[2018-04-25] MEDS: Furosemide 40 MG TAB PO SCH (08:49)
--- NOTE | 2018-04-25 08:56 | PRG ---
DATE OF SERVICE: 04/25/2018 SUBJECTIVE: The patient continues to feel well. She continues to ambulate in the verdugo. Denies ches t pain, shortness of breath. She is sleeping better and tolerating the LifeVest. Appetite is improv ed. No nausea. She continues to wait for decision on rehab placement. She states that her daughter is able to take her home if she is not able to take her to rehab. PHYSICAL EXAMINATION: VITAL SIGNS: Temperature 97.9, pulse of 97, respirations 16, blood pressure 152/81, pulse ox is 97% on room air. GENERAL: She is awake and alert, in no acute distress. Speech is clear. HEENT: Mucosa is moist. NECK: Supple. HEART: Regular rate and rhythm with 3/6 systolic ejection murmur. LUNGS: With rales at the bases. EXTREMITIES: With no edema. LABORATORY DATA: None new. ASSESSMENT AND PLAN: This is a 73-year-old female with multiple medical problems, admitted for conge stive heart failure exacerbation. Status post left heart catheterization with stent placement and Li feVest placement. 1. Acute on chronic systolic heart failure with cardiomyopathy, appears to be stable on Lasix and po tassium. Continue LifeVest placement until AICD can be placed. 2. Acute on chronic kidney disease, Nephrology following. Continue to renally dose medications. 3. Type 2 diabetes, good control. Continue medications. 4. Hypertension, stable. 5. Disposition: Awaiting rehab placement. If we do not hear anything today on approval from rehab or Medicare we will likely discharge home with her daughter for short term.
[2018-04-25 14:26] VITALS: BMI 26.1
--- NOTE | 2018-04-25 18:49 | PRG ---
DATE OF SERVICE: 04/25/2018 SUBJECTIVE: Patient was seen and examined at bedside and overnight events noted. Patient denies any shortness of breath or chest pain or palpitation. No history of nausea or vomiting or diarrhea or f ever or chills or cramps. OBJECTIVE: GENERAL: This is a well-built female, in no apparent distress. VITAL SIGNS: Temperature 98.7, pulse 80, respiratory rate 18, blood pressure 101/50. HEENT: Atraumatic, normocephalic, oral mucosa is moist. NECK: Supple. CARDIOVASCULAR: S1, S2 heard, rate and rhythm regular. RESPIRATORY: Clear to auscultation GASTROINTESTINAL: Abdomen is soft MUSCULOSKELETAL: No tenderness, no edema. DERMATOLOGIC: No skin rash. NEUROLOGIC: Alert and awake and oriented X3, no focal neurologic deficits. Moving all the extremiti es. PSYCHIATRIC: Mood and affect normal LABORATORY DATA: Not done today. ASSESSMENT AND PLAN: 1. Acute kidney injury on chronic kidney disease stage 3, stable. 2. Cardiorenal syndrome. 3. Edema. 4. Hypertension. Creatinine and renal function is stable. Avoid nephrotoxins.
[2018-04-25] MEDS: traMADol HCl 50 MG TAB PO PRN (21:16)
[2018-04-25] MEDS: Atorvastatin Calcium 40 MG TAB PO SCH (21:16)
[2018-04-25] MEDS: Insulin Glargine 35 UNITS in Pre-Filled Syringe 1 EACH SC SCH (21:16)
--- NOTE | 2018-04-25 23:00 | PDOC.CTH ---
Cardiology Progress Note - Subjective Pt. seen and eval. by me. She seems to improve daily. Walking more.No edema, no chest pain. - Objective Vital Signs Temp Pulse Resp BP Pulse Ox 04/25/18 19:30 98.1 F 105 H 16 152/94 H 98 04/25/18 19:08 99 16 98 04/25/18 16:00 97.1 F L 89 20 121/88 95 04/25/18 14:22 86 18 93 L 04/25/18 11:17 98.0 F 81 16 101/58 L 95 Admit Weight 159 lb 9 oz Weight 157 lb 04/24/18 04/25/18 04/26/18 06:59 06:59 06:59 Intake Total 1735 1670 690 Output Total 2350 3300 800 Balance -615 -1600 -110 - Physical Examination General/Neuro: alert & oriented x3 Neck: no JVD present Lungs: CTA Heart: RRR Abdomen: no HSM, NT/ND - Labs Result Diagrams: 04/21/18 04:38 04/24/18 04:33 Troponin/CKMB CK-MB (CK-2) 2.4 ng/mL (0-6.6) 04/17/18 07:48 Troponin I 0.127 ng/mL (< 0.028) H 04/17/18 13:37 - Assessment/Plan 1. CAD with S/p LHC with SAMUEL PCI x1 to Lt Cr on 04/18/18 - On Plavix 75mg qd and ASA 81mg QD. On Metorpolol 100mg qd. Not on SUKHI/ARB due to CKD. 2. Acute on Chronic systolic HF - stable with Lasix 40mg BID; Not on SUKHI/ARB due to CKD. D/c home with LifeVest 3. Acute on CKD - improving; cont. to monitor 4. HTN - stable 5. DM type 2 - stable, managed by PCP 6. PVD with hx of stent to lower extremities - stable 7. Hx of CVA 8. Weakness - improving 9. Nausea - resolved but poor appetite. MAR reviewed * SOB stable with neb; waiting for rehab placement. Life-Vest fitted . She has problems to sleep with it . * D/c to rehab with LifeVest. The pt will f/u with Dr Toledo' office within 2wks.
[2018-04-26] MEDS: Acetaminophen 325 MG TAB PO SCH ×3 (01:34→09:00)
[2018-04-26 07:43] VITALS: TEMP 98
--- NOTE | 2018-04-26 08:42 | DIS ---
DATE OF ADMISSION: 04/17/2018 DATE OF DISCHARGE: 04/26/2018 ADMISSION DIAGNOSES: Dyspnea, weakness, congestive heart failure exacerbation. DISCHARGE DIAGNOSES: Congestive heart failure, ischemic cardiomyopathy, acute on chronic, coronary a rtery disease, type 2 diabetes, hypertension. CONSULTATIONS: Dr. Toledo for Cardiology. PROCEDURES: Telemetry monitoring, cardiac catheterization with a DS stent to mid circumflex, LifeVes t placement for decreased left ventricular ejection fraction. HOSPITAL COURSE: This is a 73-year-old female patient with history of type 2 diabetes, hypertension, hyperlipidemia, history of CVA, severe peripheral vascular disease, status post bypass, severe coron ramon artery disease, status post coronary artery bypass graft, ischemic cardiomyopathy with reduced le ft ventricular ejection fraction, presented to the emergency department with worsening shortness of b reath and swelling. She was admitted. Diuresis was increased. She had some improvement of her symp toms. Due to her decreased left ventricular ejection fraction Dr. Toledo felt like she needed a cardia c catheterization. This was performed with stent placement to the mid circumflex. The patient mary jane ated that well. She continued to improve symptomatically. Her kidney function worsened after the ca rdiac catheterization. Dr. Greene saw the patient in evaluation for Nephrology. Renal ultrasound d id reveal nonfunctioning left kidney. He recommended decreasing the Lasix to once a day and the caro ent continued to do well with that and was stable for discharge on the discharge day. It was felt th at the patient would need rehab placement as an inpatient due to her increased weakness and placement of the LifeVest required over 3 days to await for approval and still have not heard from Medicare an d rehab placement. The patient continued to improve. She was walking in the hallway without chest p ain or shortness of breath and was stable for discharge home. DISCHARGE PHYSICAL EXAMINATION: VITAL SIGNS: Temperature 98.0, pulse of 79, respirations 16, blood pressure 108/58, pulse ox 98% on room air. GENERAL: She is awake and alert, in no acute distress. Speech is clear. NECK: Supple. HEART: Regular rate and rhythm. LUNGS: With rales at the bases. ABDOMEN: Obese, soft. EXTREMITIES: No edema. DISCHARGE MEDICATIONS: Tylenol p.r.n., aspirin 81 mg daily, Lipitor 40 mg daily, carvedilol 12.5 mg b.i.d., clonidine 0.1 q.6 hours p.r.n. elevated blood pressure, fish oil 1000 mg b.i.d., Lasix 40 mg daily, Levemir insulin 35 units daily, multivitamin daily, potassium chloride 20 mEq daily, Brilinta 90 mg b.i.d., tramadol p.r.n. pain. FOLLOWUP INSTRUCTIONS: The patient to follow up with Dr. Toledo in 1-2 weeks. Follow up with myself i franny 1 week.
[2018-04-26] MEDS: Carvedilol 6.25 MG TAB PO SCH (09:00)
[2018-04-26] MEDS: Fish Oil 1,000 MG CAP PO SCH (09:01)
[2018-04-26] MEDS: Multivit, Therapeutic 1 TAB PO SCH (09:01)
[2018-04-26] MEDS: Furosemide 40 MG TAB PO SCH (09:01)
[2018-04-26] MEDS: TICAGRELOR 90 MG TABLET PO SCH (09:02)
[2018-04-26] MEDS: Potassium Chloride 20 MEQ TAB PO SCH (09:02)
[2018-04-26 11:30] VITALS: BP 122/67
--- NOTE | 2018-04-26 17:36 | PRG ---
DATE OF SERVICE: 04/26/2018 SUBJECTIVE: Patient was seen and examined at bedside and overnight events noted. Patient denies any shortness of breath or chest pain or palpitation. No history of nausea or vomitin g or diarrhea or fever or chills or cramps. OBJECTIVE: GENERAL: This is a well-built female, in no apparent distress. VITAL SIGNS: Temperature 98.0, pulse 82, respiratory rate 16, blood pressure 122/67. HEENT: Atraumatic, normocephalic. Oral mucosa is moist. NECK: Supple. CARDIOVASCULAR: S1 and S2 heard. Rate and rhythm regular. RESPIRATORY: Clear to auscultation. GASTROINTESTINAL: Abdomen is soft. MUSCULOSKELETAL: No tenderness. No edema. DERMATOLOGIC: No skin rash. NEUROLOGIC: Alert and awake and oriented x3. No focal neurologic deficits. Moving all the extremit ies. PSYCHIATRIC: Mood and affect normal. LABORATORY DATA: Not done today. ASSESSMENT AND PLAN: 1. Acute kidney injury on chronic kidney disease stage 3. Renal function stable. 2. Cardiorenal syndrome. 3. Edema. 4. Hypertension. Creatinine is stable. Follow up with Dr. Hendrix in 1-2 weeks.
== END 2018-04-26 13:32 | disposition home or self-care (01) | DRG 246 ==
LOC: ERS 07:29 → ERHOLD 09:23 → OBSVTOIN 12:27 → 2SW 13:09 → 2NO 04-18 14:34
PROVIDERS: ADMIT Family Medicine; ATTEND Family Medicine
PROC: 4A023N7 Measurement of Cardiac Sampling and Pressure, Left Heart, Percutaneous Approach (ICD-10-PCS; principal; 2018-04-18)
PROC: 027034Z Dilation of Coronary Artery, One Artery with Drug-eluting Intraluminal Device, Percutaneous Approach (ICD-10-PCS; 2018-04-18)
PROC: B2001ZZ Plain Radiography of Single Coronary Artery using Low Osmolar Contrast (ICD-10-PCS; 2018-04-18)
DX: I13.0 Hypertensive heart and chronic kidney disease with heart failure and stage 1 through stage 4 chronic kidney disease, or unspecified chronic kidney disease (principal); I50.23 Acute on chronic systolic (congestive) heart failure; N17.9 Acute kidney failure, unspecified; N18.3 Chronic kidney disease, stage 3 (moderate); E11.22 Type 2 diabetes mellitus with diabetic chronic kidney disease; I25.10 Atherosclerotic heart disease of native coronary artery without angina pectoris; Z95.1 Presence of aortocoronary bypass graft; Z86.73 Personal history of transient ischemic attack (TIA), and cerebral infarction without residual deficits; I73.9 Peripheral vascular disease, unspecified; I25.5 Ischemic cardiomyopathy; Z87.891 Personal history of nicotine dependence; I25.2 Old myocardial infarction; R49.0 Dysphonia; E78.5 Hyperlipidemia, unspecified
CPT/HCPCS: 36415; 36416; 71045; 76770; 80048; 80053; 81003; 81015; 82533; 82550; 82553; 83880; 84484; 85025; 85347; 87081; 90471; 90662; 92928; 93005; 93010; 93455; 93798; 94640; 96374; A4216; C1769; C1874; C1887; C9600; G0008; G8978-GP-CK; G8979-GP-CI; G8987-GO-CJ; G8988-GO-CI; J1644; J1940; J2001; J2270; J2405; J7620

== ENCOUNTER 2018-05-11 09:34 | Inpatient (IN) | payer BC, MEDICARE ==
[2018-05-11 10:05] LABS: #Eosinphils 0.1 thou/uL (0.0-0.7); #Lymphocytes 1.1 thou/uL (1.20-3.40); #Monocytes 0.4 thou/uL (0.11-0.59); #Neutrophils 3.5 thou/uL (1.40-6.50); %Basophils 0.7 % (0.0-1.0); %Monocytes 6.9 % (0.0-10.0); %Neutrophils 70.4 % (42.0-75.0); Hemoglobin 13.7 g/dL (12.0-16.0); Mean Corpuscular HGB CONC 31.6 g/dL (32.0-36.0); Mean Corpuscular Hemoglobin 30.2 pg (27.0-31.0); Mean Corpuscular Volume 95.6 fL (78.0-98.0); Mean Platelet Volume 10.7 fL (7.4-10.4); Platelet Count 139 thou/uL (130-400); RBC Distribution Width 17.4 % (11.5-14.5); Red Blood Cell (RBC) Count 4.53 mill/uL (4.20-5.40)
[2018-05-11 10:29] LABS: ALT (SGPT) 20 U/L (8-55); AST (SGOT) 20 U/L (5-34); Albumin 3.9 g/dL (3.4-4.8); Alkaline Phosphatase 86 U/L (40-150); Anion Gap 16 mmol/L (10-20); BUN (Urea Nitrogen) 50 mg/dL (9.8-20.1); Bilirubin, Total 1.2 mg/dL (0.2-1.2); CK (CPK) 50 U/L (29-168); Calc. Creatinine Clearance 0 mL/min (70-130); Calcium 9.7 mg/dL (7.8-10.44); Carbon Dioxide 23 mmol/L (23-31); Chloride 106 mmol/L (98-107); Estimated GFR-MDRD 22; Globulin 2.7 g/dL (2.4-3.5); Glucose 152 mg/dL (83-110); Potassium 4.5 mmol/L (3.5-5.1); Protein, Total 6.6 g/dL (6.0-8.3); Sodium 140 mmol/L (136-145)
[2018-05-11 10:31] LABS: CKMB 2.3 ng/mL (0-6.6); Troponin I 0.112 ng/mL (< 0.028)
[2018-05-11] MEDS ORDERED: Furosemide 40 MG/4 ML VIAL ONE (11:14)
[2018-05-11] MEDS ORDERED: Nitroglycerin 2% Ointment 1 INCH/1 GM Packet ONE (11:14)
--- NOTE | 2018-05-11 11:15 | RAD ---
FRONTAL VIEW CHEST: INDICATION: Cough. COMPARISON: 04/17/2018. FINDINGS: There is enlargement of the cardiac silhouette. Numerous extrinsic artifacts are present limiting de tail. There is evidence of interstitial edema bilaterally. Slight blunting of each costophrenic sul cus may relate to small volume pleural fluid. IMPRESSION: Evidence of congestive heart failure. POS: [facility]
[2018-05-11 12:50] VITALS: BMI 26.1
[2018-05-11] MEDS ORDERED: cloNIDine 0.1 MG TAB PO PRN (16:13)
[2018-05-11] MEDS ORDERED: Ibuprofen 200 MG TAB PO PRN (16:15)
[2018-05-11] MEDS ORDERED: Furosemide 40 MG/4 ML VIAL SLOW IVP SCH ×2 (16:30→21:00)
[2018-05-11] MEDS ORDERED: Clopidogrel Bisulfate 300 MG TAB PO SCH (17:00)
[2018-05-11] MEDS ORDERED: Sodium Chloride 0.9% 10 ML ONE (20:26)
[2018-05-11] MEDS: Acetaminophen 325 MG TAB PO PRN (20:54)
[2018-05-11] MEDS: Insulin Glargine 35 UNITS in Pre-Filled Syringe SC SCH (20:57)
[2018-05-11] MEDS ORDERED: Carvedilol 6.25 MG TAB PO SCH (21:00)
--- NOTE | 2018-05-11 21:52 | HP ---
DATE OF ADMISSION: 05/11/2018 PRIMARY CARE PHYSICIAN: Dr. Rudd. CHIEF COMPLAINT: Nausea and shortness of breath. HISTORY OF PRESENT ILLNESS: This is a 73-year-old female patient of Dr. Rudd's who was in the hospital just a week or so ago. She was discharged on 04/26/2018 after having a stent placed . So she has known congestive heart failure with chronic renal insufficiency. During that hospital stay, she was started on Brilinta with a stent and she had nausea throughout ever since the stay and going home the nausea persisted. Today, the nausea got worse, she was dry heaving, so she came into the ER. On arrival to the ER, she was found to have a BNP over 3000 and needed to be admitted for di uresis. PAST MEDICAL HISTORY: Positive for insulin-dependent type 2 diabetes, coronary artery disease, she h ad a history of a cerebrovascular accident in the past, hypertension, hyperlipidemia, she also has pe ripheral artery disease. PAST SURGICAL HISTORY: She recently earlier this month, had a stent place. She is also status post CABG in the past. She has had spinal surgeries twice. She had peripheral vascular stents placed in her lower extremities, and she has had a left ovarian cyst removed. MEDICATIONS: Lasix 40 mg daily, Brilinta 90 mg twice a day, clonidine 0.1 mg q.8 hours p.r.n., carve dilol initially was twice a day and had been moved up a week ago to 6.25 mg twice a day. She w as also on atorvastatin 40 mg a day. She was on Lasix 40 mg, but only once a day, and Klor-Con 20 mE q daily. ALLERGIES: CLINDAMYCIN and METFORMIN. SOCIAL HISTORY: She lives alone. She has a daughter and a son-in-law who is here with her now. She has been working on and off at [employer]. She is a previous smoker and denies any alcohol use. REVIEW OF SYSTEMS: Denies any visual changes. No trouble chewing or swallowing. She denies any andrew st pain. She has been wearing a LifeVest, which irritates her posterior ribs on her left side. She has not necessarily had any cough, but she has had a mild shortness of breath and some nausea which s he says flares up and gets significant but she is not real had any true vomiting just dry heaves. Steffen andrews has not noticed any change in her bowel habits, no abdominal pain. She has not had any changes in her urinary habits. No constipation, no diarrhea, no dysuria, no hematuria. She denies any paresis or paresthesias. No auditory or visual hallucinations and no ideations. PHYSICAL EXAMINATION: VITAL SIGNS: In the room, she is afebrile at 98.2, pulse in the mid-90s, 95-99, respirating 16-18, s atting 96% on room air, BP upon arrival was 176/79. GENERAL: She is awake and alert, lying in bed, conversive. NECK: Supple, no JVD, no bruits, no lymphadenopathy, no thyromegaly. LUNGS: Clear to auscultation bilaterally. I am not picking up any bibasilar rales. HEART: S1, S2, with no rubs or murmurs, or gallops. ABDOMEN: Soft, nontender, nondistended, slightly obese. No hepatosplenomegaly. EXTREMITIES: Show no edema. Good palpable pulses in all four extremities. NEUROLOGIC: She is grossly intact. Cranial nerves II-XII are equal and symmetrical. LABORATORY AND X-RAY FINDINGS: Her white count is normal at 5.0, H and H is 13.7 and 43.4, platelets of 139,000. There is no shift. Chemistries: Sodium is 140, potassium is 4.5, chloride 106, bicarb concha 23, BUN is 50, creatinine is 2.19, GFR is 22, glucose at 152. AST 20, ALT is 20, alkaline phos phatase is 86. Creatinine kinase is 50, CK-MB is 2.3. Her initial troponin was 0.112, second tropon in was 0.12. Her beta natriuretic peptide came back at 3817. Protein levels are okay. Interestingl y, she had a 7-beat run of V-tach earlier that she was asleep and still denied any chest pain from at. ASSESSMENT AND PLAN: Congestive heart failure exacerbation with known coronary artery disease and kn own chronic kidney disease which is not necessarily any truly significantly different from her past, so plan is to put her in for diuresis. We will also consider the possibility that the Brilinta could have been irritating the nausea or initiating some of the nausea. It is possible she will be able t o switch over from Brilinta back to Plavix and she tolerated that well and has been possibly long atul ugh since her stent placement, Cardiology, Dr. Toledo has been consulted and her assistance is here darrell luating her now. So, we will continue those treatments. We will do IV diuresis twice a day and will follow labs accordingly.
--- NOTE | 2018-05-12 00:57 | CON ---
DATE OF CONSULTATION: 05/11/2018 DATE OF ADMISSION: 05/11/2018 INDICATION FOR CONSULTATION: A 73-year-old female with a history of cardiomyopathy, severe coronary artery disease, who presented with angioplasty and stent placement. She has had history of bypass petersen rgery in the past. We were asked to see her due to intractable nausea, which may be associated with some of her medications for her congestive heart failure. Please refer the notes dictated by the luis felipe practitioner for the past medical history, social history, family history, review of systems, medi cations, allergies. She is a very pleasant 73-year-old female who has had a long history of coronary artery disease and decrease in left ventricular systolic function after suffering myocardial infarct ions. She was in the hospital most recently and underwent an angioplasty and stent placement. She h as had no further chest pain or shortness of breath and had no significant lower extremity edema, but had some problems with nausea and vomiting and dry heaves since she left the hospital and she believ es this may be due to her medications in the form of Coreg or possibly even due to the antiplatelet m edication that was given in the form of Brilinta since she takes medications twice a day. We will tr y to readjust these medicines while she is still here to see whether or not she can get some improvem ent. She had a stent placement to the left circumflex, otherwise she has been doing relatively well. PHYSICAL EXAMINATION: GENERAL: Reveals an elderly female who is in no acute distress at this time. She is awake, alert, o riented. She says she has had no further nausea since she was given I believe Zofran. VITAL SIGNS: Her blood pressure is 134/79, heart rate is 95 and regular. She has atrial sinus rhyth m. She is afebrile, respiratory rate 16. HEENT: Unremarkable. She does have bilateral carotid bruits noted. CHEST: Clear to auscultation. CARDIOVASCULAR: Exam reveals a regular rate and rhythm. She had no significant gross murmurs. ABDOMEN: Soft and nontender. Positive bowel sounds are present. NEUROLOGIC: She is fully intact. She has normal strength and tone for someone of her age. SKIN: Warm and dry. She previously had a LifeVest, this is now at bedside. Since she is being bella tored, she does not need to wear it in the hospital, IMPRESSION: 1. Severe decrease in left ventricular systolic function with nausea associated with the medications , this may be due decrease in ejection fraction also associated with her diabetes. She may have deve loped gastroparesis. We will change her medications to see whether or not this will help. She did s eem to have significant improvement with Zofran. 2. Coronary artery disease. She is status post angioplasty and stent placement to the left circumfl ex. She also has a history of previous bypass surgery and remains stable otherwise. She has chronic congestive heart failure at this time, she has stage 2. She has some shortness of breath that only with exertion. She is able to lie flat without any shortness of breath. We will continue to follow her with you and hopefully her nausea will subside. She will continue wearing the LifeVest and we wi ll see her in another couple of months in the office. She will undergo an echocardiogram. If ejecti on fraction still remains less than 30%-35%, then she will need to undergo a permanent AICD placement . Her last echocardiogram showed an ejection fraction of 25%-30%.
[2018-05-12] MEDS ORDERED: Sodium Chloride 0.9% 10 ML ONE (05:54)
[2018-05-12] MEDS ORDERED: Furosemide 40 MG/4 ML VIAL SLOW IVP SCH (06:00)
[2018-05-12 06:04] LABS: Anion Gap 15 mmol/L (10-20); BUN (Urea Nitrogen) 49 mg/dL (9.8-20.1); Calc. Creatinine Clearance 26 mL/min (70-130); Calcium 9.1 mg/dL (7.8-10.44); Carbon Dioxide 25 mmol/L (23-31); Chloride 106 mmol/L (98-107); Estimated GFR-MDRD 22; Glucose 130 mg/dL (83-110); Potassium 3.6 mmol/L (3.5-5.1); Sodium 142 mmol/L (136-145)
[2018-05-12] MEDS ORDERED: Potassium Chloride 20 MEQ TAB PO SCH (09:00)
[2018-05-12] MEDS: Aspirin 81 mg Enteric Coated Tablet PO SCH (09:04)
[2018-05-12] MEDS: Clopidogrel Bisulfate 75 MG TAB PO SCH (09:04)
[2018-05-12] MEDS: Ondansetron ODT 4 MG TAB SL PRN (10:10)
[2018-05-12] MEDS ORDERED: Dextrose 50% Abboject 50 ML SYRINGE IVP PRN (12:54)
[2018-05-12] MEDS ORDERED: HumaLOG 300 UNITS/3 ML VIAL SC PRN (12:54)
[2018-05-12] MEDS ORDERED: Dextrose 5% in Water 1,000 ML IV PRN (12:54)
[2018-05-12] MEDS: Furosemide 100 MG/10 ML VIAL IVPB SCH (13:13)
--- NOTE | 2018-05-12 14:40 | PDOC.CTH ---
<Ame Narvaez - Last Filed: 05/12/18 14:37> Cardiology Progress Note - Subjective The pt seen and examined. No overnight events. No cardiac complaints. She cont. having nausea. - Objective Vital Signs Temp Pulse Resp BP BP Pulse Ox 05/12/18 11:36 98.4 F 77 16 126/67 96 05/12/18 08:00 97 05/12/18 07:53 97.5 F L 76 16 127/77 97 05/12/18 06:47 91 16 139/86 05/12/18 03:24 98.1 F 79 16 117/75 98 Weight 152 lb 8 oz 05/11/18 05/12/18 05/13/18 06:59 06:59 06:59 Intake Total 744 Output Total 900 Balance -156 - Physical Examination General/Neuro: alert & oriented x3 Neck: no JVD present Lungs: CTA Heart: RRR Extremities: other: (No edema) - Telemetry Telemetry Rhythm: SR - Labs Result Diagrams: 05/11/18 09:44 05/12/18 05:30 Troponin/CKMB CK-MB (CK-2) 2.3 ng/mL (0-6.6) 05/11/18 09:44 Troponin I 0.100 ng/mL (< 0.028) H 05/11/18 15:36 - Assessment/Plan 1. Acute on Chronic systolic HF - stable with Lasix 40mg IV BID and bblocker. LifeVest is off because she is on Tele monitor and complains of very discomfort. 2. CAD with s/p PCI x1 to Lt Cr on 04/18/18 - stable with BBlocker, Plavix, and ASA 3. CKD - unchanged 4. HTN - stable with current meds 5. DM type 2 - managed by PCP 6. PAD with stend to lower exts - stable 7. Hx of CVA - 8. Nausea possible 2/2 Gastroparesis - stable; MAR reviewed * Plan to have another Echo within 2-3 months; if EF cont. < 35%, possible AICD placement. Review of Systems - Review of Systems Constitutional: reports: weakness EENTM: reports: no symptoms reported Respiratory: reports: no symptoms reported Cardiac (ROS): reports: no symptoms reported ABD/GI: reports: nausea : reports: no symptoms reported Musculoskeletal: reports: no symptoms reported Skin: reports: no symptoms reported <Erin Toledo - Last Filed: 05/12/18 22:16> Cardiology Progress Note - Objective Vital Signs Temp Pulse Resp BP Pulse Ox 05/12/18 16:18 98.1 F 80 18 122/65 96 05/12/18 11:36 98.4 F 77 16 126/67 96 Weight 152 lb 8 oz 05/11/18 05/12/18 05/13/18 06:59 06:59 06:59 Intake Total 744 1200 Output Total 900 1300 Balance -156 -100 - Labs Result Diagrams: 05/11/18 09:44 05/12/18 05:30 Troponin/CKMB CK-MB (CK-2) 2.3 ng/mL (0-6.6) 05/11/18 09:44 Troponin I 0.100 ng/mL (< 0.028) H 05/11/18 15:36 - Assessment/Plan Pt. seen and evaluated by me. I agree with the A/P by the SOUND EDITOR. We have discussed the pt. and the plan.Chest clear RRR.
[2018-05-12] MEDS: Acetaminophen 325 MG TAB PO PRN (21:21)
[2018-05-12] MEDS: Insulin Glargine 35 UNITS in Pre-Filled Syringe SC SCH (21:22)
[2018-05-13 05:18] LABS: Anion Gap 15 mmol/L (10-20); BUN (Urea Nitrogen) 46 mg/dL (9.8-20.1); Calc. Creatinine Clearance 27 mL/min (70-130); Carbon Dioxide 24 mmol/L (23-31); Chloride 107 mmol/L (98-107); Estimated GFR-MDRD 23; Glucose 72 mg/dL (83-110); Potassium 3.6 mmol/L (3.5-5.1); Sodium 142 mmol/L (136-145)
[2018-05-13] MEDS: Furosemide 100 MG/10 ML VIAL IVPB SCH ×2 (05:20→14:34)
[2018-05-13] MEDS ORDERED: Magnesium Citrate 300 ML BOT PO PRN (08:09)
--- NOTE | 2018-05-13 08:37 | PRG ---
DATE OF SERVICE: 05/13/2018 SUBJECTIVE: The patient is feeling some better. She has decreased nausea today, she has had good re lief with Zofran. She is tolerating a diet at this time. She states that she continues to have some nausea on and off, but improved. She has not had a good bowel movement in the past several days. D enies chest pain. Denies shortness of breath. continues to feel fatigued. OBJECTIVE: VITAL SIGNS: Temperature 98.2, pulse is 62, respirations 16, blood pressure 109/63, pulse ox is 96% on room air. GENERAL: She is awake and alert, in no acute distress. Speech is clear. Mucosa is moist. NECK: Supple. HEART: Regular rate and rhythm. LUNGS: Clear. No wheeze, rales or rhonchi. ABDOMEN: Soft, positive bowel sounds. EXTREMITIES: With no edema. LABORATORY DATA: Sodium 142, potassium 3.6, chloride 107, CO2 24, BUN and creatinine 46 and 2.11 wit h a GFR of 23, which is her baseline. BNP today was 3760. Accu-Cheks of 73, 184 154. Echocardiogra m is pending. ASSESSMENT AND PLAN: This is a 73-year-old female patient with a long history of type 2 diabetes wit h complications of coronary disease, status post coronary bypass graft, severe peripheral vascular di sease with lower extremity stents and status post carotid endarterectomy, now admitted with nausea an d congestive heart failure exacerbation. 1. Nausea, possibly secondary to increase in her carvedilol over the past few days. This is improve d. I will check upper GI series to rule out gastroparesis and continue Zofran p.r.n. 2. Congestive heart failure. She clinically seems to be improving. She appears to be euvolemic at this time in spite of her continued elevated BNP. I will continue Lasix. 3. Coronary artery disease appears to be stable. I appreciate Dr. Toledo and continue to follow her p tanvi. 4. Chronic kidney disease stage 4. We will continue to monitor closely, especially with increased d iuresis. May consult Dr. Hendrix if this seems to have worsened. 5. Diet: The patient is still confused about what she is to be eating. We will consult dietitian f or further education. 6. Constipation. We will start magnesium citrate p.r.n.
[2018-05-13] MEDS: Aspirin 81 mg Enteric Coated Tablet PO SCH (10:08)
[2018-05-13] MEDS: Clopidogrel Bisulfate 75 MG TAB PO SCH (10:08)
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
[2018-05-13] MEDS ORDERED: Insulin Glargine 32 UNITS in Pre-Filled Syringe 1 EACH SC SCH (21:00)
[2018-05-13] MEDS: traMADol HCl 50 MG TAB PO PRN (21:49)
[2018-05-14] MEDS: Furosemide 100 MG/10 ML VIAL IVPB SCH ×2 (05:55→14:26)
[2018-05-14 06:06] LABS: Anion Gap 16 mmol/L (10-20); BUN (Urea Nitrogen) 42 mg/dL (9.8-20.1); Calc. Creatinine Clearance 28 mL/min (70-130); Calcium 9.4 mg/dL (7.8-10.44); Carbon Dioxide 22 mmol/L (23-31); Chloride 109 mmol/L (98-107); Estimated GFR-MDRD 25; Potassium 3.6 mmol/L (3.5-5.1); Sodium 143 mmol/L (136-145)
[2018-05-14 06:16] LABS: Glucose 41 mg/dL (83-110)
--- NOTE | 2018-05-14 08:08 | PRG ---
DATE OF SERVICE: 05/14/2018 SUBJECTIVE: The patient is feeling some better. She denies nausea now that the carvedilol has been stopped. She is tolerating a diet. Awaiting upper GI series to be done. Denies chest pain, shortne ss of breath is improved. She does have dyspnea on exertion with walking in the room and in the [address]. No fevers or chills. PHYSICAL EXAMINATION: VITAL SIGNS: Temperature 97.4, pulse of 65, respirations 16, blood pressure 121/75, pulse ox 92-95% on room air. GENERAL: She is awake and alert, in no acute distress. Speech is clear. HEENT: Mucosa is moist. NECK: Supple. HEART: Regular rate and rhythm. LUNGS: Clear bilaterally. ABDOMEN: Soft with positive bowel sounds. EXTREMITIES: With no edema. LABORATORY DATA: Sodium 143, potassium 3.6, chloride 109, CO2 of 22, BUN and creatinine 42 and 1.98 with a GFR of 25, which is improved. Serum glucose was 41 before glucagon. Accu-Cheks 153, 109 173. BNP this morning was 3545. Echocardiogram revealed a decreased left ventricular ejection fraction of 10-15%. ASSESSMENT AND PLAN: 1. This is a 73-year-old female with known ischemic cardiomyopathy, coronary artery disease, severe peripheral vascular disease, now congestive heart failure exacerbation. 2. Continue diuresis as per Cardiology. 3. Decreased left ventricular ejection fraction. Worse from before down to 10-15% on echocardiogram . Electrophysiology to evaluate for possible implantable defibrillator placement. 4. Chronic kidney disease stage 4. Continue to monitor. Has improved with diuresis. We will lily nue to watch closely. 5. Type 2 diabetes with hypoglycemia this morning. We will decrease her insulin. 6. Nausea has improved with stopping the carvedilol. Await upper GI series.
[2018-05-14] MEDS: Aspirin 81 mg Enteric Coated Tablet PO SCH (11:15)
[2018-05-14] MEDS: Clopidogrel Bisulfate 75 MG TAB PO SCH (11:15)
[2018-05-14] MEDS: traMADol HCl 50 MG TAB PO PRN ×2 (11:16→21:02)
--- NOTE | 2018-05-14 13:39 | RAD ---
UPPER GI WITH SMALL BOWEL EXAM: HISTORY: Abdominal pain. Vomiting. Gastroparesis. FINDINGS: A single column contrast evaluation shows a normal anatomic appearance of the esophagus and stomach. Nonpropulsive tertiary type contractions of the distal esophagus are apparent. Moderate amount of g astroesophageal reflux. There is a significant decrease in peristalsis of the stomach and small salvador l. Normal mucosal pattern of the bowel. The terminal ileum is unremarkable and reached at one hour. IMPRESSION: 1. Significant decrease in peristalsis of the stomach and bowel. Normal transit time. No evidence of obstruction. 2. Gastroesophageal reflux with presbyesophagus. POS: SAVANAH
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
[2018-05-14] MEDS: Acetaminophen 325 MG TAB PO PRN (18:18)
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
[2018-05-14] MEDS ORDERED: Insulin Glargine 25 UNITS in Pre-Filled Syringe 1 EACH SC SCH (21:00)
[2018-05-15] MEDS: Furosemide 100 MG/10 ML VIAL IVPB SCH ×2 (05:03→13:52)
--- NOTE | 2018-05-15 08:15 | PRG ---
DATE OF SERVICE: 05/15/2018 SUBJECTIVE: The patient is feeling nauseous this morning. Denies chest pain, denies shortness of br eath. She states that she is hungry and her blood sugars have been running low. Upper GI series did show reflux, but no signs of gastroparesis or aspiration. She has been walking in the room without difficulties. No fevers, no chills. OBJECTIVE: VITAL SIGNS: Temperature 97.8, pulse of 71, respirations 18-19, blood pressure 109/74, pulse ox is 9 4-97% on room air. GENERAL: She is awake and alert. She appears uncomfortable, but no acute distress. HEENT: Mucosa is moist. NECK: Supple. HEART: Regular rate and rhythm. LUNGS: Clear. No wheeze, rales or rhonchi. ABDOMEN: Soft. EXTREMITIES: No edema. LABORATORY DATA: Accu-Cheks of 72, 121, 92, 69. Yesterday morning was down to 42. Again, upper GI series revealed a normal transit time. Decreased peristalsis. No obstruction and ev idence of gastroesophageal reflux. ASSESSMENT AND PLAN: 1. This is a 73-year-old female patient with known ischemic cardiomyopathy, coronary artery disease, severe peripheral vascular disease, now admitted with congestive heart failure exacerbation with dec reased left ventricular ejection fraction. I appreciate electrophysiology evaluation and planning fo r an implantable defibrillator in the future. We will continue diuresis as per Cardiology. 2. We will check a repeat chest x-ray and BNP this morning. 3. Chronic kidney disease stage 4. We will continue to monitor. We will check a basic metabolic pa néstor this morning. 4. Type 2 diabetes with hypoglycemia. We will continue to hold her insulin and continue insulin sli ding scale. 5. Gastroesophageal reflux disease. We will start back on a proton pump inhibitor and consider Regl an.
[2018-05-15 08:56] LABS: Anion Gap 11 mmol/L (10-20); BUN (Urea Nitrogen) 39 mg/dL (9.8-20.1); Calc. Creatinine Clearance 32 mL/min (70-130); Calcium 9.5 mg/dL (7.8-10.44); Carbon Dioxide 28 mmol/L (23-31); Chloride 105 mmol/L (98-107); Estimated GFR-MDRD 27; Glucose 71 mg/dL (83-110); Potassium 4.1 mmol/L (3.5-5.1); Sodium 140 mmol/L (136-145)
--- NOTE | 2018-05-15 09:13 | RAD ---
SINGLE VIEW OF THE CHEST: INDICATION: History of CHF. COMPARISON: Prior exam dated 05/13/2018. FINDINGS: There is moderate cardiomegaly which is stable. Pulmonary vascular congestion persists. Tiny bilate ral pleural effusions are stable. Midline sternotomy changes and CABG change are stable. No pneumot horax is evident. IMPRESSION: Stable congestive heart failure. POS: LAY
[2018-05-15] MEDS: Clopidogrel Bisulfate 75 MG TAB PO SCH (09:18)
[2018-05-15] MEDS: Aspirin 81 mg Enteric Coated Tablet PO SCH (09:18)
--- NOTE | 2018-05-15 10:11 | PRG ---
DATE OF SERVICE: 05/15/2018 SUBJECTIVE: Ms. Bolivar seems to be doing better today. Breathing has improved. OBJECTIVE DATA: VITAL SIGNS: Blood pressure 109/74, respirations 19, temperature 97.8 degrees Fahrenheit. The ins a nd outs reveal minus 670 mL over 24 hours balance. GENERAL: Alert and oriented woman in no apparent distress. NECK: Supple. Jugular veins are not distended. CHEST: Coarse without crackles. CARDIOVASCULAR: Heart sounds are regular to rate and rhythm. No murmur or gallop. ABDOMEN: Benign. Bowel sounds positive. EXTREMITIES: Lower extremities without edema, clubbing or cyanosis. LABORATORY DATA: BMP is still 3416 today, slightly reduced from the initial 3760 level. Telemetry strips reveal sinus rhythm. No ventricular arrhythmias. Chest x-ray shows stable congestive heart failure from this morning. ASSESSMENT AND PLAN: 1. Ms. Bolivar is a pleasant 73-year-old woman with a prior history of chronic congestive heart fail ure and ischemic cardiomyopathy. She had a stent placed in 01/2017, but her LV rate has not improved so far. She is here with congestive heart failure exacerbation. We discussed treatment options inc luding defibrillator option. Hence recent stent placement, would like to hold off on defibrillator p lacement and cover her ventricular arrhythmia risk with a LifeVest, which already has at hand. I wou ld like to see her back in about 3 months after the stent placement in June after repeat echocard iogram. If LVEF remains less than 35%, she would likely benefit from ICD placement. 2. Atypical left bundle likely benefit from resynchronization therapy as well. 3. We will make arrangements for outpatient followup.
[2018-05-15] MEDS: traMADol HCl 50 MG TAB PO PRN (10:46)
--- NOTE | 2018-05-15 13:13 | CON ---
DATE OF CONSULTATION: 05/15/2018 REASON FOR CONSULTATION: Elevated creatinine. HISTORY OF PRESENT ILLNESS: This is a very pleasant 73-year-old female who presented to the hospital on 05/11/2018, was noted to have a creatinine of more than 2.2, baseline creatinine was 1.7. The pa emy was admitted for severe congestive heart failure. After diuresis, the patient's creatinine imp roved to 1.7 today. The patient denies headache, numbness, tingling or weakness. Denies any nausea, vomiting or chest pain. PAST MEDICAL AND SURGICAL HISTORY: Significant for congestive heart failure, EF of 25%, ischemic car diomyopathy, coronary artery disease, CABG, hypertension, diabetes mellitus, history of stroke, histo ry of unilateral kidney, history of CABG, history of stent placement, history of carotid endarterect luzma, appendectomy, tubal ligation, back surgery, angioplasty. FAMILY HISTORY: Negative for end-stage renal disease. SOCIAL ECONOMIC HISTORY: No alcohol or drug use. ALLERGIES: Reviewed. HOSPITAL MEDICATIONS: List reviewed. REVIEW OF SYSTEMS: A 15-point review of systems was performed and was negative except for positives noted above. GENERAL: Weakness-. HEAD: Headache-. NECK: No swelling or lumps. NOSE: No epistaxis or discharge. EYES: No diplopia or pain. RESPIRATORY: Dyspnea-. CARDIOVASCULAR: Chest pain-. GASTROINTESTINAL: Nausea-. /ENTRY LEVEL BUYER: Hematuria-. MUSCULOSKELETAL: No joint pain. NEUROPSYCHIATIC SYSTEMS: No suicidal ideation. No ideation. SKIN: Denies any rash or ulcer. CONSTITUTIONAL: No fever or chills. PHYSICAL EXAMINATION: GENERAL: Patient is awake, alert. VITAL SIGNS: Afebrile, pulse 75, breathing at 16, blood pressure 119/68. GENERAL APPEARANCE AND MENTAL STATUS: Fair. HEAD/NECK: Normocephalic. Atraumatic. EYES: EOMI. No deformity. EARS: Clear. No ulcers. NOSE: Intact. No lesions. MOUTH: Clear. No discharge. THROAT: Clear. No exudate. LUNGS: Clear. No crackles. CARDIAC: S1, S2. No rub. ABDOMEN: Benign. BS+. GENITALIA/RECTUM: Vaughan absent. BACK/EXTREMITIES: Edema 0+ Ulcer-. NEUROLOGICAL: Alert and motor intact. SKIN: Rash- Bruise-. LYMPHATICS: Edema- Ulcer-. LABORATORY DATA: Creatinine was 1.8, potassium 4.1. ASSESSMENT AND RECOMMENDATIONS: 1. Chronic kidney disease stage 4, stable. 2. Hypertension, stable. 3. Acute kidney injury, improved. 4. Anemia, stable. 5. Medication based on glomerular filtration rate are appropriate. No indication for dialysis at th is time.
[2018-05-15] MEDS: Ondansetron ODT 4 MG TAB SL PRN (13:56)
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
[2018-05-15] MEDS: Ondansetron PF 4 MG/2 ML Vial SLOW IVP PRN (19:25)
[2018-05-16] MEDS: Furosemide 100 MG/10 ML VIAL IVPB SCH (06:17)
[2018-05-16] MEDS: Ondansetron PF 4 MG/2 ML Vial SLOW IVP PRN (08:14)
[2018-05-16] MEDS: Aspirin 81 mg Enteric Coated Tablet PO SCH (08:15)
[2018-05-16] MEDS: Clopidogrel Bisulfate 75 MG TAB PO SCH (08:15)
[2018-05-16 09:00] LABS: Anion Gap 14 mmol/L (10-20); BUN (Urea Nitrogen) 48 mg/dL (9.8-20.1); Calc. Creatinine Clearance 26 mL/min (70-130); Calcium 9.5 mg/dL (7.8-10.44); Carbon Dioxide 26 mmol/L (23-31); Chloride 103 mmol/L (98-107); Estimated GFR-MDRD 21; Glucose 81 mg/dL (83-110); Potassium 4.8 mmol/L (3.5-5.1); Sodium 138 mmol/L (136-145)
[2018-05-16] MEDS ORDERED: Metoclopramide HCl 10 MG/2 ML VIAL IVP PRN (10:53)
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
[2018-05-16] MEDS ORDERED: Furosemide 40 MG/4 ML VIAL SLOW IVP SCH (11:00)
[2018-05-16] MEDS: [UNRECOGNIZED DRUG - OTHER] PO SCH ×2 (15:12→23:14)
[2018-05-16] MEDS: Calcium Carbonate 500 MG ChewTAB PO SCH ×2 (15:13→21:01)
[2018-05-16 15:15] LABS: Bilirubin Negative (Negative); Blood, Urine Negative (Negative); Clarity CLEAR (Clear); Glucose, Urine (Dipstick) Negative (Negative); Leukocyte Small (Negative); Nitrite Negative (Negative); Protein, Urine (Dipstick) 100 mg/dL (Neg-Trace); Specific Gravity, Urine 1.009 (1.002-1.036); Urobilinogen 0.2 mg/dL (0.2-1.0)
[2018-05-16 15:17] LABS: Bacteria/HPF 4+ HPF (None Seen); Hyaline Casts/LPF 0-3 HYALINE CAST LPF (0-3 Hyaline); Pathc Cast-AUWi Flag 0.29 (0-2.49); RBC/HPF 0-3 HPF (0-3); Squamous Epithelial 0-3 HPF (0-3)
--- NOTE | 2018-05-16 15:22 | PRG ---
DATE OF SERVICE: 05/16/2018 SUBJECTIVE: The patient continues to feel "sick." She states that she feels nauseous but no vomitin g. She has had bowel movements. No diarrhea. Denies abdominal pain. She states that eating does n ot help with her discomfort. No fevers or chills. Denies chest pain or shortness of breath. She is ambulating in the room. States that she has been evaluated by Dr. Menard for GI as well as Dr. Noris silva for Nephrology. PHYSICAL EXAMINATION: VITAL SIGNS: Temperature 98.0, pulse is 76 and regular, respirations 16, blood pressure 119/77, puls e ox is 97% on room air. GENERAL: She is awake and alert. She is in moderate distress due to feeling "sick." She stands up and walks in the room with minimal difficulty except for unsteady on her gait. HEENT: Mucosa is moist. NECK: Supple. HEART: Regular rate and rhythm. LUNGS: Clear bilaterally. ABDOMEN: With positive bowel sounds in all 4 quadrants. Some mild epigastric tenderness, no rebound , no guarding. No peritoneal signs. No CVA tenderness. EXTREMITIES: No clubbing, cyanosis, or edema. 2+ peripheral pulses bilaterally. LABORATORY DATA: Sodium 138, potassium 4.8, chloride 103, CO2 of 26, BUN and creatinine 48 and 2.27 with a GFR of 21. Serum glucose was 81. Accu-Cheks of 66, 100, 139, and 146, glucose of 95. BNP ye sterday was still high at 3416. A chest x-ray from yesterday revealed a stable congestive heart fail ure. Upper GI series did reveal decreased peristalsis, moderate gastroesophageal reflux disease. ASSESSMENT AND PLAN: This is a 73-year-old female patient with history of known ischemic cardiomyopathy, coronary artery d isease, severe peripheral vascular disease, admitted with congestive heart failure exacerbation with decreased left ventricular ejection fraction. 1. Congestive heart failure. We will continue diuresis as per Cardiology. They are decreasing the Lasix at this time. 2. Ischemic cardiomyopathy with a risk of fatal arrhythmia. Electrophysiology to plan for implantin g defibrillator once stable. 3. Chronic kidney disease, stage 4, possibly worse due to the contrast from the upper GI series. I will continue to monitor and place her on IV fluids. 4. Nausea, secondary to gastroesophageal reflux disease and gastroparesis. Cardiology has started R martha today. We will continue proton pump inhibitor and start antacids as well. Await Dr. Menard 's recommendations. Per patient, he is considering upper endoscopy as well. 5. Type 2 diabetes. Due to episodes of hypoglycemia and due to her decreased diet, we will continue to hold her insulin and continue insulin sliding scale. 6. I will check urinalysis to rule out urinary tract infection as well.
--- NOTE | 2018-05-16 22:11 | PRG ---
DATE OF SERVICE: 05/16/2018 ELECTROPHYSIOLOGY FOLLOWUP NOTE SUBJECTIVE: Ms. Bolivar seems to be doing fair, but has some nausea this morning. OBJECTIVE: VITAL SIGNS: Blood pressure is 145/81, heart rate 91, respiratory rate 16, temperature 98.2 degrees Fahrenheit. GENERAL: Alert and oriented woman in no apparent distress except for nausea. NECK: Supple. Jugular veins not distended. CHEST: Coarse, no crackles. CARDIOVASCULAR: Heart sounds are regular to rate and rhythm. No murmur or gallop. ABDOMEN: Benign. Bowel sounds positive. EXTREMITIES: No edema, clubbing or cyanosis. DATABASE: EKG reveal sinus rhythm. No specific changes. ASSESSMENT AND PLAN: Ms. Bolivar is a pleasant 73-year-old woman with prior history of cardiomyopathy, recent stent placement. She is wearing a LifeVest for prophylaxis sudden cardiac . At this point, it is reasonable to continue LifeVest therapy and we would like to evaluate her 3 months after her stent placement with a repeat echocardiogram to see if she is still a candidate for prophylactic ICD therapy at that time. Continue life vest use in the internim. A followup in the office requested in about 2 months after a followup echo is already performed. For now, we will sign out. Call if any further questions. ALEXANDRA
--- NOTE | 2018-05-16 22:46 | PRG ---
DATE OF SERVICE: 05/16/2018 SUBJECTIVE: This is a female being seen for acute kidney injury. The patient has had some nausea an d vomiting. PHYSICAL EXAMINATION: GENERAL: Patient is awake, alert. VITAL SIGNS: Pulse 91, breathing at 16, blood pressure 145/81. GENERAL APPEARANCE AND MENTAL STATUS: Fair. HEAD/NECK: Normocephalic. Atraumatic. EYES: EOMI. No deformity. EARS: Clear. No ulcers. NOSE: Intact. No lesions. MOUTH: Clear. No discharge. THROAT: Clear. No exudate. LUNGS: Clear. No crackles. CARDIAC: S1, S2. No rub. ABDOMEN: Benign. BS+. GENITALIA/RECTUM: Vaughan absent. BACK/EXTREMITIES: Edema 0+ Ulcer- NEUROLOGICAL: Alert and motor intact. SKIN: Rash- Bruise- LYMPHATICS: Edema- Ulcer- LABORATORY DATA: Show creatinine 2.2. ASSESSMENT AND RECOMMENDATIONS: 1. Acute kidney injury with chronic kidney disease, most likely due to decreased effective arterial blood volume. Continue gentle hydration. 2. Hypertension, stable. 3. Anemia, stable. 4. Medications based on glomerular filtration rate are appropriate.
[2018-05-16] MEDS: traMADol HCl 50 MG TAB PO PRN (23:37)
[2018-05-17 07:01] LABS: ALT (SGPT) 59 U/L (8-55); AST (SGOT) 58 U/L (5-34); Albumin 3.3 g/dL (3.4-4.8); Alkaline Phosphatase 102 U/L (40-150); Anion Gap 14 mmol/L (10-20); BUN (Urea Nitrogen) 54 mg/dL (9.8-20.1); Bilirubin, Total 1.1 mg/dL (0.2-1.2); Calc. Creatinine Clearance 24 mL/min (70-130); Calcium 9.5 mg/dL (7.8-10.44); Carbon Dioxide 23 mmol/L (23-31); Chloride 104 mmol/L (98-107); Estimated GFR-MDRD 20; Globulin 2.6 g/dL (2.4-3.5); Glucose 106 mg/dL (83-110); Potassium 4.6 mmol/L (3.5-5.1); Protein, Total 5.9 g/dL (6.0-8.3); Sodium 136 mmol/L (136-145)
--- NOTE | 2018-05-17 08:11 | PRG ---
DATE OF SERVICE: 05/17/2018 SUBJECTIVE: The patient is feeling much better. States that her nausea has gone away. She was able to eat last night without nausea or vomiting. She continues to have a bowel movement, but no diarrh ea. She denies abdominal pain. Denies chest pain or shortness of breath, denies fevers or chills. She is feeling much better overall today and asking to go home. OBJECTIVE: VITAL SIGNS: Temperature 98.3, pulse is 79, respirations 15, blood pressure 123/67, pulse oximetry i s 95% on room air. GENERAL: She is awake and alert, in no acute distress. She appears comfortable and pleasant. HEENT: Mucosa is moist. NECK: Supple. HEART: Regular rate and rhythm with 2/6 systolic ejection murmur. LUNGS: With fine rales at the bases. ABDOMEN: Positive bowel sounds in all 4 quadrants, soft, nontender, except for minimal epigastric te nderness. EXTREMITIES: No edema. LABORATORY DATA: Sodium 136, potassium 4.6, chloride 104, CO2 23, BUN and creatinine 54 and 2.44 wit h a GFR of 20. Serum glucose of 106. Accu-Cheks of 95, 174, 125, 152, calcium 9.5, AST and ALT are slightly elevated at 58 and 59, alkaline phosphatase was normal. BNP elevated [place] 7401, albumin of 3. 3. Urinalysis was only small leukocyte, 7-10 white blood cells, 4+ bacteria. Abdominal ultrasound i s pending. ASSESSMENT AND PLAN: This is a 73-year-old female patient with known ischemic cardiomyopathy with de creased left ventricular ejection fraction, coronary artery disease, severe peripheral vascular disea se, admitted with congestive heart failure exacerbation. 1. Congestive heart failure. We will continue diuresis per Cardiology. It appears that her BNP has elevated since 1-2 days ago. She denies symptoms at this time and is walking in the room. Possible elevation in liver function tests due to hepatic congestion. Continue plan per Cardiology. 2. Ischemic cardiomyopathy; electrophysiology planning implanted defibrillator in the future. 3. Nausea with gastroparesis and gastroesophageal reflux disease. She is much improved with proton pump inhibitor, Tums and Reglan. Dr. Menard is considering upper endoscopy today. 4. Urinary tract infection. We will start antibiotic therapy. 5. Type 2 diabetes. Now that she is eating, we will restart a low dose of her basal insulin and con tinue insulin sliding scale. 6. Acute on chronic kidney disease stage 4. Continue to monitor closely and encourage water intake. DISPOSITION: Hopefully home in the next day or 2 depending on whether she needs endoscopy today with close follow up. Outpatient cardiac rehabilitation is already scheduled.
--- NOTE | 2018-05-17 08:38 | CON ---
DATE OF CONSULTATION: 05/16/2018 REFERRING PHYSICIAN: Ame Narvaez, nurse practitioner, Cardiology Service, , Dr. Abraham Rudd. REASON FOR CONSULTATION: Persistent nausea and retching, but no vomiting. HISTORY OF PRESENT ILLNESS: Ms. Sanaz Bolivar is very pleasant, 73-year-old, female with m ultiple problems. The patient has a history of myocardial infarction, history of cardiomyopathy, con gestive heart failure. She has had a recent stent placement and angioplasty a couple of weeks ago in this hospital. The patient was placed on Brilinta after stent placement. The patient had no nausea or retching during the last admission. The patient hospitalized a couple of days ago because of the persistent nausea at bedtime, but does not vomit. She has no abdominal pain. There is no his tory of dysphagia or odynophagia. The patient had an upper GI series done, which revealed presbyesop hagus and there is mention of a decreased motility of the stomach and small bowel. She is on IV Regl an 10 mg q.8 hours. Her symptoms are really not much changed. She is also on Protonix. The patient has had no abdominal pain whatsoever. Her bowel movements are fairly regular. No hematochezia or m cristo. I talked to the patient, she tells me she never had nausea before. The nausea is persistent. After she was given Reglan, improved at times really, but back again. She has no relevant history. ALLERGIES: CLINDAMYCIN, METFORMIN. SOCIAL HISTORY: Patient lives alone. She was a past smoker. No history of alcohol intake. MEDICAL ILLNESSES: 1. Insulin-dependent diabetes mellitus. 2. Possible myocardial infarction. 3. Cardiomyopathy. 4. Systolic heart failure. 5. Hypertension. 6. Hyperlipidemia. 7. Peripheral vascular disease. 8. Chronic kidney disease. SURGERIES: 1. Heart stent placement. 2. Coronary artery bypass graft. 3. Spinal surgeries x2. She also has had peripheral vascular stent placement done in the past. 4. Surgery included the removal of a left ovarian cyst in the past. FAMILY MEDICATIONS: List reviewed, which include Reglan, Protonix, Lasix, Brilinta, clonidine, Coreg , atorvastatin, Lasix, and Klor-Con. REVIEW OF SYSTEMS: A 10-point system review. Constitutional: No evidence of fever or chills. No w eight loss. Her energy level is actually pretty good. HEENT: No headache, no syncope. Eyes, no di plopia, no impaired vision. Ears, no hearing loss. Nose, no nosebleed. Throat, no sore throat. Re spiratory: History of dyspnea off and on and also coughing. No hemoptysis. Cardiovascular: Histor y of recent dyspnea, no orthopnea, PND, or chest pain or palpitation. Gastrointestinal: No abdomina l pain, but has persistent nausea over the last several days. There is no vomiting. No hematochezia or melena. No abdominal pain or reflux symptoms. Genitourinary: No dysuria or hematuria. Musculo skeletal: History of some back pain off and on. Neuropsychiatric/Endocrine: Nonrelevant. PHYSICAL EXAMINATION: GENERAL: Reveals a very pleasant, elderly, female, appears very comfortable. She is awake , alert, and oriented to time and place and person. VITAL SIGNS: Stable. Temperature 98 degrees Fahrenheit, pulse is 76, blood pressure is 119/77. HEENT: Conjunctivae clear. NECK: Supple. No adenitis or thyromegaly noted. CARDIOVASCULAR: First and second heart sounds normal. LUNGS: Clear to auscultation. ABDOMEN: Soft. Abdomen is nondistended. Abdomen is nontender. There is no organomegaly or masses. Bowel sounds normal. EXTREMITIES: Reveal no edema. LABORATORY DATA AND X-RAY FINDINGS: WBC 5000, hemoglobin 13.7, hematocrit 43.4, MCV 95.6, platelet c ount 139,000, polymorphs 70, lymphocytes 21, monocytes 6. Chemistry panel: Sodium is 138, potassium 4.8, chloride 103, bicarbonate 26, BUN is 48, creatinine 2.27, calcium 9.5. Her chest x-ray shows f indings of congestive heart failure. CLINICAL IMPRESSION: A 73-year-old, female with cardiomyopathy, coronary artery disease, s tatus post stent placement. She comes in with persistent nausea, but no vomiting. No abdominal pain , no heartburn. No other symptoms except nausea. She does have diabetes mellitus, medication . An upper GI series done showed presbyesophagus, is very nonspecific and does not cause nausea. Sh e does have some slow motility and upper GI series. The etiology of the nausea is multifactorial, po ssibly: 1. Drug induced. 2. Due to hepatic congestion. 3. Possible gastroparesis. RECOMMENDATIONS: 1. Continue IV Reglan and Protonix. 2. May add Zofran if the nausea is uncontrolled with Reglan. 3. Abdominal sonogram. 4. Presbyesophagus does not cause nausea and is very common in older people, and at times, she can h ave dysphagia, but not nausea from the presbyesophagus. If her symptoms persist at some point in cade e, will consider EGD.
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
[2018-05-17] MEDS ORDERED: Furosemide 20 MG TAB PO SCH (09:00)
--- NOTE | 2018-05-17 09:35 | ULT ---
ABDOMINAL ULTRASOUND: History: Nausea and dyspepsia. Abdominal pain. Chronic kidney disease. Recent CT of 03-17-18 confirmed numerous gallstones. FINDINGS: Images of the gallbladder reveal numerous small echogenic gallstones. There is mild pericholecystic e aashish and fluid. Mild gallbladder wall thickening and edema. Common duct is of normal caliber measuring at 3-4 mm. The aorta is normal caliber as visualized. IVC unremarkable. Liver appears unremarkable. Small cyst in the left lobe measures 2.0 cm. Spleen unremarkable. Pancreas is partially obscured but appears unremarkable as visualized. There is a small atrophic left kidney which measures 6.5 cm with cortical thinning and increased dale ical echogenicity. No hydronephrosis. The right kidney measures approximately 9 cm with mild increased cortical echogenicity. The cortical thickness is preserved. No hydronephrosis. Small right pleural effusion is incidentally noted. IMPRESSION: 1. Cholelithiasis with pericholecystic edema and thickening gallbladder wall. The technologist descri bes a negative Palmer sign. 2. Atrophic left kidney with mild increased cortical echogenicity seen in both kidneys as described. 3. Small left lobe hepatic cyst. 4. Tiny amount of free fluid around the liver margin. 5. Small right pleural effusion. POS: [facility]
[2018-05-17] MEDS: Aspirin 81 mg Enteric Coated Tablet PO SCH (13:25)
[2018-05-17] MEDS: Sulfameth/Trimethoprim DS 800-160mg TAB PO SCH ×2 (13:26→21:37)
[2018-05-17] MEDS: Clopidogrel Bisulfate 75 MG TAB PO SCH (13:27)
[2018-05-17] MEDS: Metoclopramide HCl 10 MG TAB PO SCH ×4 (13:27→21:36)
[2018-05-17] MEDS: Furosemide 40 MG TAB PO SCH ×2 (13:27→15:40)
[2018-05-17] MEDS: Calcium Carbonate 500 MG ChewTAB PO SCH ×3 (13:27→19:53)
[2018-05-17] MEDS: [UNRECOGNIZED DRUG - OTHER] PO SCH ×3 (13:39→21:36)
--- NOTE | 2018-05-17 13:55 | PRG ---
DATE OF SERVICE: 05/17/2018 HISTORY OF PRESENT ILLNESS: Ms. Sanaz Bolivar is a very pleasant 73-year-old female with h eart failure, coronary disease, status post stent placement recently. The patient also complained of some nausea. The patient had no abdominal pain, no vomiting. The patient is on IV Protonix and castorena toprazole, calcium, Protonix and IV Reglan. She is actually feeling better today. She was able to e at a good breakfast and lunch today. Her nausea is almost resolved. She has abdominal sonogram show s gallstones and pericholecystic fluid. However, I believe the gallstones are asymptomatic as she velásquez s no abdominal pain and on examination with nausea. PHYSICAL EXAMINATION: VITAL SIGNS: Afebrile, pulse is 79, blood pressure is 123/67. HEENT: Conjunctivae clear. CARDIOVASCULAR: First and second heart sounds normal. LUNGS: Clear to auscultation. ABDOMEN: Abdomen is soft, abdomen is nontender. There is no organomegaly or masses. Sonogram as mentioned earlier significant for gallstones and pericholecystic fluid. Symptoms more fr om the heart failure than actually acute cholecystitis. RECOMMENDATIONS: 1. Continue Reglan. 2. Diet: As tolerated. 3. No EGD planned for today as she is on Brilinta. If we perform an EGD she has ____, which may be high risk for stent occlusion. As long as she is doing well, I believe no further GI workup is necessary. However, if the symptoms last, ____ consider EGD and consider stopping the Brilinta for a couple of days.
[2018-05-17] MEDS ORDERED: diphenhydrAMINE 50 MG CAP PO SCH (16:30)
--- NOTE | 2018-05-17 19:04 | PRG ---
DATE OF SERVICE: 05/17/2018 SUBJECTIVE: A 73-year-old female being seen for acute kidney injury. The patient denies any nausea, vomiting or chest pain. OBJECTIVE: GENERAL: Patient is awake, alert. VITAL SIGNS: Afebrile, pulse 75, breathing 16, blood pressure 134/80. GENERAL APPEARANCE AND MENTAL STATUS: Fair. HEAD/NECK: Normocephalic. Atraumatic. EYES: EOMI. No deformity. EARS: Clear. No ulcers. NOSE: Intact. No lesions. MOUTH: Clear. No discharge. THROAT: Clear. No exudate. LUNGS: Clear. No crackles. CARDIAC: S1, S2. No rub. ABDOMEN: Benign. BS+. GENITALIA/RECTUM: Vaughan absent. BACK/EXTREMITIES: Edema 0+ Ulcer- NEUROLOGICAL: Alert and motor intact. SKIN: Rash- Bruise- LYMPHATICS: Edema- Ulcer- LABORATORY DATA: Show creatinine . ASSESSMENT AND PLAN: 1. Acute kidney injury on chronic kidney disease due to cardiorenal syndrome. 2. Stage 4 ckd watch creatinine closely. 3. Hypertension, stable. 4. Anemia, stable. 5. Medication based on glomerular filtration rate are appropriate. No indication for dialysis at this time. MTDD
[2018-05-17] MEDS ORDERED: Insulin Glargine 15 UNITS in Pre-Filled Syringe 1 EACH SC SCH (21:00)
[2018-05-18] MEDS: traMADol HCl 50 MG TAB PO PRN (00:18)
[2018-05-18] MEDS: Metoclopramide HCl 10 MG TAB PO SCH ×2 (08:35→11:37)
[2018-05-18] MEDS: [UNRECOGNIZED DRUG - OTHER] PO SCH (08:36)
[2018-05-18] MEDS: Furosemide 40 MG TAB PO SCH (08:36)
[2018-05-18] MEDS: Clopidogrel Bisulfate 75 MG TAB PO SCH (08:36)
[2018-05-18] MEDS: Calcium Carbonate 500 MG ChewTAB PO SCH (08:36)
[2018-05-18] MEDS: Aspirin 81 mg Enteric Coated Tablet PO SCH (08:36)
[2018-05-18] MEDS: Sulfameth/Trimethoprim DS 800-160mg TAB PO SCH (08:38)
--- NOTE | 2018-05-18 10:19 | DIS ---
DATE OF ADMISSION: 05/11/2018 DATE OF DISCHARGE: 05/18/2018 ADMISSION DIAGNOSES: Congestive heart failure exacerbation, acute on chronic kidney failure, persistent nausea. DISCHARGE DIAGNOSES: Congestive heart failure, improved; ischemic cardiomyopathy; coronary artery disease; cardiomyopathy with decreased left ventricular ejection fraction; diabetic gastroparesis; cholelithiasis, gastroesophageal reflux disease; stage 4 chronic kidney disease, abnormal urinalysis CONSULTATIONS: Dr. Toledo for Cardiology and Dr. Cisneros for Electrophysiology, Dr. Hendrix for Nephrology, Dr. Menard for Gastroenterology. PROCEDURES: Telemetry monitoring, echocardiogram, upper gastrointestinal x-ray series. HOSPITAL COURSE: This is a 73-year-old female patient with a long history of atherosclerotic cardiovascular disease, status post coronary artery bypass graft , status post lower extremity bypasses, history of chronic kidney disease, who was admitted with a CHF exacerbation and worsening nausea. The patient states that, when her antihypertensive medicine was increased, she developed persistent nausea and had not been able to tolerate a diet. She presented to the ER and was found to be in CHF with a BNP over 3000. Diuresis was initiated and Dr. Toledo saw the patient in evaluation. A repeat echocardiogram revealed ejection fraction of 10%-15%. She had been on a LifeVest defibrillator due to her low ejection fraction. Dr. Cisneros was consulted for possible implanted defibrillator placement. He felt like her cardiac status seemed to be improved with diuresis prior to undergoing the surgical procedure. As she continued to improve during her hospitalization with diuresis, she was not requiring oxygen. She was ambulating in the room without difficulty. She continued to have nausea in spite of changing Brilinta to Plavix and decreasing her dose of carvedilol. Upper GI series was performed, which did reveal persistent gastroesophageal reflux as well as decreased peristalsis in the stomach and the bowel. No evidence of obstruction. She had significant improvement of her nausea with initiating Reglan and Tums p.r.n. Dr. Menard was consulted by Dr. Toledo' service. He considered upper endoscopy to further rule out obstruction, but due to her being on the Plavix, he was not able to perform that during this hospitalization. Abdominal ultrasound did reveal cholelithiasis with thickened gallbladder wall, but no signs of acute cholecystitis. She had a urinalysis which was suspicious for a UTI but cultures were negative. Due to her persistent nausea, she was started on Bactrim but developed a rash, and the medicine was stopped. Dr. Hendrix was following the patient for her decreased renal function. Her GFR remained between 20 and 27. It did worsen slightly after the upper GI series due to the contrast, but seemed to stabilize after that. He did not feel like she was a candidate for hemodialysis at this time. She was stable for discharge on the day of discharge. DISCHARGE PHYSICAL EXAMINATION: VITAL SIGNS: Temperature 98.2, pulse of 85 and regular, respirations 20, blood pressure 126/73, pulse ox is 98% on room air. GENERAL: She is awake and alert. She is comfortable walking in the hallway. HEENT: Mucosa is moist. NECK: Supple, with bruit. HEART: Regular rate and rhythm with 3/6 systolic ejection murmur. LUNGS: With fine rales at the bases. No wheeze or rhonchi. ABDOMEN: Soft. EXTREMITIES: With no edema. DISCHARGE LABORATORY DATA: Accu-Cheks 139, 174, 145. Again, GFR was 20. AST and ALT were slightly elevated at 58 and 59. Alkaline phosphatase was normal at 102. Discharge BNP was 7401. White blood cell count was 5000. DISCHARGE MEDICATIONS: Include Tums 500 mg t.i.d. p.r.n., Reglan 10 mg with meals, omeprazole 20 mg daily, tramadol p.r.n. pain, Plavix 75 mg b.i.d., K-Dur 20 mEq daily, multivitamin daily, Lantus to increase back to 30-35 units at bedtime, Lasix 40 mg b.i.d., fish oil 1000 mg b.i.d., carvedilol 6.25 mg b.i.d. , Lipitor 40 mg at bedtime, aspirin 81 mg daily, Tylenol p.r.n. pain. FOLLOWUP INSTRUCTIONS: Patient to follow up in my office next week. Follow up with Dr. Toledo in 1-2 months and follow up with Dr. Cisneros in 1-2 months. She has cardiac rehabilitation arranged as well as Heart Failure Clinic followup arranged as well. ALEXANDRA
[2018-05-18 11:10] LABS: Anion Gap 14 mmol/L (10-20); BUN (Urea Nitrogen) 60 mg/dL (9.8-20.1); Calc. Creatinine Clearance 21 mL/min (70-130); Calcium 9.5 mg/dL (7.8-10.44); Carbon Dioxide 23 mmol/L (23-31); Chloride 105 mmol/L (98-107); Estimated GFR-MDRD 17; Glucose 161 mg/dL (83-110); Sodium 137 mmol/L (136-145)
[2018-05-18 11:36] VITALS: BP 133/80; TEMP 97.6
--- NOTE | 2018-05-18 12:22 | EKG ---
Test Reason : Blood Pressure : / mmHG Vent. Rate : 089 BPM Atrial Rate : 089 BPM P-R Int : 152 ms QRS Dur : 124 ms QT Int : 400 ms P-R-T Axes : 030 -36 141 degrees QTc Int : 486 ms Normal sinus rhythm Possible Left atrial enlargement Left axis deviation Left ventricular hypertrophy with QRS widening and repolarization abnormality Abnormal ECG Confirmed by GUILLERMINA WEBSTER, AIRAM ([id number]), assistant production editor ELANA ELLIOTT ([id number]) on 05/18/2018 12:22:45 PM Referred By: Confirmed By:AIRAM SARMIENTO MD
--- NOTE | 2018-05-18 14:18 | PRG ---
DATE OF SERVICE: 05/18/2018 SUBJECTIVE: This is a 73-year-old female, being seen for end-stage renal disease. The patient denie s any nausea, vomiting, or chest pain. OBJECTIVE: See above. GENERAL: Patient is awake and alert. VITAL SIGNS: Afebrile, pulse 85, breathing at 16, blood pressure . GENERAL APPEARANCE AND MENTAL STATUS: Fair. HEAD/NECK: Normocephalic. Atraumatic. EYES: EOMI. No deformity. EARS: Clear. No ulcers. NOSE: Intact. No lesions. MOUTH: Clear. No discharge. THROAT: Clear. No exudate. LUNGS: Clear. No crackles. CARDIAC: S1 and S2. No rub. ABDOMEN: Benign. BS+. GENITALIA/RECTUM: Vaughan absent. BACK/EXTREMITIES: Edema 0+, ulcer. NEUROLOGICAL: Alert and motor intact. SKIN: Rash - bruise. LYMPHATICS: Edema - ulcer. ASSESSMENT AND RECOMMENDATIONS: 1. Acute kidney injury on chronic kidney disease. We would recommend increasing hydration with norm al saline. 2. Hypertension, stable. 3. Anemia, stable. 4. Medication based on GFR are appropriate.
== END 2018-05-18 13:31 | disposition home or self-care (01) | DRG 291 ==
LOC: ERS 09:34 → 2NO 11:20
PROVIDERS: ADMIT Family Medicine; ATTEND Family Medicine
DX: I13.0 Hypertensive heart and chronic kidney disease with heart failure and stage 1 through stage 4 chronic kidney disease, or unspecified chronic kidney disease (principal); I50.23 Acute on chronic systolic (congestive) heart failure; N18.4 Chronic kidney disease, stage 4 (severe); N39.0 Urinary tract infection, site not specified; N17.9 Acute kidney failure, unspecified; I47.1 Supraventricular tachycardia; E11.22 Type 2 diabetes mellitus with diabetic chronic kidney disease; I25.10 Atherosclerotic heart disease of native coronary artery without angina pectoris; Z86.73 Personal history of transient ischemic attack (TIA), and cerebral infarction without residual deficits; I73.9 Peripheral vascular disease, unspecified; Z95.1 Presence of aortocoronary bypass graft; Z79.4 Long term (current) use of insulin; E78.5 Hyperlipidemia, unspecified; Z79.899 Other long term (current) drug therapy; Z88.8 Allergy status to other drugs, medicaments and biological substances; Z88.1 Allergy status to other antibiotic agents; Z87.891 Personal history of nicotine dependence; I25.5 Ischemic cardiomyopathy; K21.9 Gastro-esophageal reflux disease without esophagitis; E11.649 Type 2 diabetes mellitus with hypoglycemia without coma; R11.0 Nausea; T44.7X5A Adverse effect of beta-adrenoreceptor antagonists, initial encounter; K59.00 Constipation, unspecified; K80.20 Calculus of gallbladder without cholecystitis without obstruction; T37.0X5A Adverse effect of sulfonamides, initial encounter; Z79.82 Long term (current) use of aspirin; Z79.891 Long term (current) use of opiate analgesic; I44.7 Left bundle-branch block, unspecified; Z95.5 Presence of coronary angioplasty implant and graft; R21 Rash and other nonspecific skin eruption
CPT/HCPCS: 36415; 36416; 71045; 74249; 76700; 80048; 80053; 81003; 81015; 82150; 82550; 82553; 82977; 83690; 83735; 83880; 84484; 85025; 93005; 93306; 96374; J1940; J2405; J2765; Q0162